=== PATIENT | female | born 1975 | race Two or more races ===

== ENCOUNTER 2024-08-10 13:25 | Outpatient (REF) | payer OTHER, SELFPAY ==
--- OUTSIDE RECORDS SUMMARY | 2023-11-11 13:27 | XMS_ITS | Encounter Summary ---
Author Organization [facility] Address [address] [place] [address] Care Team Providers Care Fretted String Instrument Repairer Name Role Phone Loly Browne MD Primary [...] you may not have stable housing? No 01/27/2024 Food Access & Nutrition Answer Date Rec orded Do you have access to a vari ety of food including fruits and vegetables? Yes 01/27/2024 Health Literacy Answer Date Recorded How often do you need to hav e someone help you when you read instructions, pamphlets, or other written material from your doctor or pharmacy? Never 01/27/2024 Caregiver: How often do you need to have someone help you when you read instructions, pamphlets, or other written material from your doctor or pharmacy? Not on file 01/27/2024 Financial Risk Answer Date Recorded How hard is it for you to pa y for the very basics like food, housing, medical care, and air conditioning / heating? Not very hard 01/27/2024 Transportation Answer Date Recorded Has the lack of transportati on kept you from meetings, work, or from getting things needed for daily living? No Has the lack of transportati on kept you from medical appointments or from getting medications? No 01/27/2024 Social Isolation Answer Date Recorded How often do you feel lonely or isolated from th ose around you? Never 01/27/2024 Food Risk Answer Date Recorded Within the past 12 months we worried whether our food would run out before we got money to buy more. Never true 01/27/2024 Within the past 12 months th e food we bought just didn't last and we didn't have money to get more. Never true 01/27/2024 Dependent Care Answer Date Recorded Do you need help finding or paying for care for your loved ones. For example, children's ministries director or elderly care for an older adult? No 01/27/2024 Education Answer Date Recorded Do you think completing more education or training, like finishing a GED, going to college, or learning a trade, would be helpful for you? No 01/27/2024 Employment and Income Answer Date Recor ded During the last four weeks, have you been actively looking for work? No 01/27/2024 Living Situation Answer Date Recorded What is your living situation? 1 03/29/2023 Comments No Sex and Gender Information Value [...] 10:09 AM EDT documented in this encounter Progress Notes * Historical, Notes [...] Care Team (Late st Contact Info) Description 08/17/2024 10:00 AM EDT Office Visit Gastroenterology - [place] [address] [phone] Eliana Herring NP [address] [address] 08/17/2024 3:00 PM EDT Appointment [facility] Infusion Center 271 [facility] 2nd [place] [phone] 08/24/2024 1:00 PM EDT Nutrition Internal Medicine - [place] [address] [phone] Faith Curtis, MICHELL 175 [place] [phone] 11/16/2024 11:30 AM EDT Office Visit [facility] Hematology Oncology [address] [place] [phone] Mounika Elise DO [address] [place] [address] 11/28/2024 12:30 PM EDT Office Visit Adult Medicine [address] [phone] Loly Browne MD [address] [place] [phone] documented as of this encounter Visit Diagnoses Not on filedocumented in this encounter Care Teams Fretted String Instrument Repairer Relationship Specialty Start Date End Date Loly Browne MD PCP - General Internal Medicine 09/09/21 01/05/24 documented as of this encounter
--- NOTE | 2024-08-10 13:33 | EMG_ITS ---
Impression: Moderately severe carpal tunnel syndrome bilaterally with significant motor axonal loss in the right median nerve. Normal EMG in the right C5-T1 innervated muscles. Please see detailed neurophysiological report MTDD
--- OUTSIDE RECORDS SUMMARY | 2024-08-10 14:04 | XMS_ITS | Data Portability ---
Author Organization [place] [facility] Address [address] [address] Assessment Encounter Date Assessment Date Assessment LastModified by Organization Details LastModified Time 09/16/2023 09/16/2023 47-year-old female presents for evaluation of hearing loss. On exam, bilateral TMs are intact with aerated middle ear spaces. Audiometric testing demonstrated normal sloping to severe sensorineural hearing loss bilaterally. Masking techniques recommended for tinnitus. She is a candidate for amplification and medical clearance was provided today. She will follow-up in 1 year for audiometric testing, or sooner with any concerns. [email or web address] Not available 09/16/2023 10:29:26 Plan of Treatment Reminders Order Date Submit Date Provider Last Modified By Organization Details Last Modified Time Details Appointments Hearing Test 2024 10:00A M Hearing Test Not available Not available Not available Establish ed 15 2024 10:30A M LILA STAPLETON PA-C Not available Not available Not available Lab None recorded. Referral None recorded. Procedures None recorded. Surgeries None recorded. Imaging None recorded. Medication Orders None recorded. Patient TargetsNo targets recorded. Patient InstructionsNo instructions recorded. Reason for Referral None Reported. Results Created Date Observation Date Name Description Value Unit Range Abnormal Flag Note LastModifiedBy Organization Detail LastModifiedTime 09/16/19 24 audio gram No observ ation record ed. BARCODE Not Available 2023 13:24:56 Result Notes None recorded. Problems Name Problem SNOMED Code Status Onset Date Resolution Date Notes Provider Name and Address Organization Details Recorded Time Sensorineur al hearing loss of bilateral ears 666953845 Active 2023 EDUIN BARNEY, AUD 100 [facility], [address], [place], [address], [place] - [facility] 09:45:10 Bilateral tinnitus 3333785963963 Active 2023 LILA STAPLETON PA-C 100 [facility] [address], [place], [phone], [place] - [facility] 10:28:33 Problem Notes None recorded. Procedures Surgical History Date Name Laterality Status Provider Name and Address Organization Details Recorded Time 09/16/19 24 Comp Audio with Tymps - 77068 & 95592 completed EDUIN BARNEY AUD 100 [facility] [address], [place], [address], [facility] - [facility] 09/16/2023 09:45:14 Cerv cancer screen docd completed Tori Kent [place] - [facility] 09/16/2023 09:58:28 mammogram - symptomatic completed Tori Kent [place] - [facility] 09/16/2023 09:58:59 colonoscopy completed Tori Kent [place] - [facility] 09/16/2023 09:59:13 section completed Tori Kent [place] - [facility] 09/16/2023 09:59:32 procedure on gallbladder completed Tori Kent [facility] - [facility] 09/16/2023 09:59:58 Imaging Results None recorded. Procedure Notes None recorded. Medical Equipment None Reported. Allergies Allergen ID Allergen Name Allergen Category Reaction Reaction Severity Criticality Documentation Date Start Date Code Code System Note Provider Name and Address Organization Details Recorded Time 302770 Product containin g penicilli n (product) medicatio n Not available Not available Not available 09/16/2023 [address] - [facility] 09:55:07 Medications Name Sig Start Date Stop Date Status Note LastModified by Organization Details LastModified Time levothyroxi ne 100 mcg tablet TAKE 1 TABLET BY MOUTH EVERY DAY active Not Available Not Available No t Available metoprolol succinate ER 25 mg tablet,exte nded release 24 hr TAKE 1 TABLET BY MOUTH EVERY DAY active Not Available Not Available No t Available Laxative (bisacodyl) 5 mg tablet,leslie yed release TAKE 2 TABS AT 6PM DIRECTED. 09/15 completed Not Available Not Available Not Available vitamin O79-mflmo acid injection solution Take 25 mg by injection route. active Not Available Not Available No t Available GaviLyte-G 236 gram-22.74 gram-6.74 gram-5.86 gram oral solution PLEASE SEE ATTACHED FOR DETAILED DIRECTION S 09/15 completed Not Available Not Available Not Available Vitals Date Recorded Body height Body mass index (BMI) Body weight Provider Name and Address Organization Details Last Updated DateTime 09/16/2023 157.48 cm 34.6 kg/m2 33254.96 g Tori Kent [place] - [facility] 09/16/2023 10:12:41 Social History None recorded. Functional Status None recorded. Mental Status None recorded. Family History Nothing Reported. Medical History Condition Response Heart Problems Y Anemia Y Anxiety Y Thyroid Problems Y Depression Y Gynecological HistoryNo gynecological history recorded. Obstetrics History GPAL:G 0 P 0 0 0 0 Immunizations Vaccine Type Date Status Note Provider Nam e and Address Organization Details Recorded Time influenza nasal, unspecified formulation completed Tori wallace [place] - [facility] 09/16/2023 09:57:57 Past Encounters Encounter ID Performer Location Encounter Start Date Encounter Closed Date Diagnosis/Indication Diagnosis SNOMED-CT Code Diagnosis ICD10 Code Diagnosis Note [id number] LILA STAPLETON PA-C [facility] [address] [address] 09/16/2023 09:31:51 09/16/2023 10:19:24 Sensorineural hearing loss of bilateral ears 548477016 H90.3 Right Ear:Normal hearing through 500 Hz sloping to a severe SNHL with excellent speech discrimina tion.Type A tympanogra m.Left Ear:Normal hearing through 500 Hz sloping to a severe SNHL with excellent speech discrimina tion.Type A tympanogra m. Bilateral tinnitus 76177 31416 102 H93.13 Health Concerns Section Related Observation LastModified by Organization Detai ls LastModified Time None Recorded Concern Status LastModified by Organization Details LastModified Time None Recorded Advance Directives Directive None Recorded Payers Insurance Date Sequence Insurance Name Policy Number Policy Archer Covered Member ID Archer Member ID Guarantor Name 09/17/2023 1 [facility] (MEDICAID REPLACEMENT - HMO) [address] [id number] Eliseoe Ashleigh Notes Date Note Type Note Provider Name and Address Organization Details Recorded Time 09/16/2023 text/html 47-year-old fema zeus presents for evaluation of hearing loss. She reports longstanding hearing loss, worse on the left. Denies family history of hearing loss. Denies prior otologic history. Admits to bilateral longstanding tinnitus that is unchanged, but denies otalgia, otorrhea, and vertigo. LILA STAPLETON PA-C [address] [place] [address], [phone], [facility] - [facility] 09/16/2023 10:30:22 OBGyn Episode No OBEpisode recorded.
--- OUTSIDE RECORDS SUMMARY | 2024-08-10 14:04 | XMS_ITS | Clinical Summary ---
Author Organization [facility] Address [address] [place] [address] Care Team Providers Care Premix Operator Concentrate Name Role Phone Loly Wing MD Primary Care Prov ider Allergies Active Allergy Reactions Criticality Noted Date Comments Penicillins 07/05/2020 Medications Medication Sig Dispensed Refills Start Date End Date Status cyanocobalamin (VITAMIN B12) 1000 MCG/ML injection Inject 1 mL (1,000 mcg total) into the muscle every 30 (thirty) days. 0 Active levothyroxine (SYNTHROID) tablet 100 mcg Take 1 tablet (100 mcg total) by mouth every morning on an empty stomach. Mon-Sat one tab, Thursday 1/2 tablet 0 Active metoprolol succinate (TOPROL-XL) 24 hr tablet 25 mg Take by mouth daily. 0 Active albuterol 108 (90 Base) MCG/ACT inhaler Inhale 2 puffs into the lungs. 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 Vitamin D deficiency 08/18/2016 B12 deficiency 09/13/2015 Anxiety 08/07/2015 Overview: F/u at [facility] Atrial fibrillation 08/07/2015 Hypothyroidism 08/07/2015 Iron deficiency anemia 08/07/2015 Family History Medical History Relation Name Comments Hypertension Father Diabetes Maternal Grandfather Diabetes Maternal Grandmother Cancer Mother Relation Name Status Comments Father Maternal Grandfather Maternal Grandmother Mother Social History Tobacco Use Types Packs/Day Years Used Date Smoking Tobacco: Never Smokeless Tobacco: Never Alcohol Use Standard Drinks/Week Comments Never 0 (1 standard drink = 0.6 oz pur e alcohol) Sex and Gender Information Value Date Recorded Sex Assigned at Female 07/14/2023 9:30 AM EDT Gender Identity Not on file Sexual Orientation Not on file Job Start Date Occupation Industry Not on file Not on file Not on file Last Filed Vital Signs Vital Sign Reading Time Taken Comments Blood Pressure 111/66 12/09/2023 2:06 PM EDT Pulse 96 12/09/2023 2:06 PM EDT Temperature 36.6 C (97.8 F) 12/09/2023 2:06 PM EDT Respiratory Rate 18 11/11/2023 1:57 PM EDT Oxygen Saturation 98% 12/09/2023 2:06 PM EDT Inhaled Oxygen Concentration - - Weight 86.2 kg (190 lb) 10/21/2023 10:09 AM EDT Height 157.5 cm (5' 2 ) 10/21/2023 10:09 AM EDT Body Mass Index 34.75 10/21/2023 10:09 AM EDT Plan of Treatment Health Maintenance Due Date Last Done Comments Hepatitis C Screening 1975 Depression Screening 1987 BMI Counseling 11/13/1993 Preventative Health Evaluation 11/13/1993 Cervical Cancer Screening (Pap Smear) 11/13/1996 Colon Cancer Screening (Colonoscopy) 11/13/2020 COVID-19 Vaccine ( season) 2023 02/07/2021, 07/26/2020, 07/05/2020 Influenza Vaccine (Season Ended) 2024 10/14/2022, 01/15/2021, 02/11/2019, Additional history exists DTap / Tdap / Td (3 - Td or Tdap) 04/16/2026 04/16/2016, 09/28/2009 Hepatitis B Vaccines Completed 01/28/2023, 08/27/2022, 07/30/2022 Pneumococcal Vaccine Aged Out No long er eligible based on patient's age to complete this topic RSV Ped < 20 months Aged Out No longe r eligible based on patient's age to complete this topic Care Teams Premix Operator Concentrate Relationship Specialty Start Date End Date Loly Wing MD [address] [place] [address] PCP - General Internal Medicine 12/10/22
== END 2024-08-10 13:26 | disposition home or self-care (01) ==
LOC: HO.NEURO 13:25
PROVIDERS: PCP Internal Medicine; Visit Provider Psychiatry & Neurology Neurology
DX: G56.03 Carpal tunnel syndrome, bilateral upper limbs (principal)
CPT/HCPCS: 95885; 95913

== ENCOUNTER → 2024-08-10 13:33 | Outpatient (BNV) | payer OTHER, SELFPAY | PROVIDERS: PCP Internal Medicine; Visit Provider Psychiatry & Neurology Neurology | DX: G56.03 Carpal tunnel syndrome, bilateral upper limbs (principal) | CPT/HCPCS: 95886; 95913 ==

== ENCOUNTER 2024-09-21 14:25 | Outpatient (AMB) | payer OTHER, SELFPAY ==
--- OUTSIDE RECORDS SUMMARY | 2023-11-11 13:27 | XMS_ITS | Encounter Summary ---
Author Organization [facility] Address [address] [place] [address] Care Team Providers Care Tractor Trailer Truck Driver Name Role Phone Loly Browne MD Primary [...] care for your loved ones. For example, salesperson children's shoes or elderly care for an older adult? [...] Care Team (Late st Contact Info) Description 09/28/2024 3:30 PM EDT Appointment [facility] Infusion Center [address] [phone] 11/16/2024 11:30 AM EDT Office Visit [facility] Hematology Oncology [address] [place] [phone] Mounika Elise DO [address] [place] [address] 11/28/2024 12:30 PM EDT Office Visit Adult Medicine [facility] [address] [place] [phone] Loly Browne MD [address] [place] [address] 11/30/2024 9:00 AM EDT Nutrition Internal Medicine [facility] 175 [facility] [address] [place] [phone] Faith Curtis, RD 175 [place] [phone] documented as of this encounter Visit Diagnoses Not on filedocumented in this encounter Care Teams Tractor Trailer Truck Driver Relationship Specialty Start Date End Date Loly Browne MD PCP - General Internal Medicine 09/09/21 01/05/24 documented as of this encounter
--- NOTE | 2024-09-21 14:37 | A.OFFVIS_ITS ---
Intake Visit Reasons: [address] was not here Allergies Penicillins Allergy (Unknown, Verified 09/16/24 08:04) Unknown Medication List - Last Reconciled 09/21/24 by Iliana Bejarano MD aripiprazole 2 mg PO QAM buspirone 5 mg PO BID levothyroxine 100 mcg PO QAM melatonin mg PO HPI Comments Details: This is a 48-year-old woman with a history of hypothyroidism, atrial fibrillation, who comes in with c/o daily pain, numbness and tingling in both hands since early June 2024, that gets worse at night and affects her ability to sleep.? She is left-handed.? She says that she has not been doing anything unusual with her hands and does not do any repetitive movements.? There is no neck pain or stiffness.? No lower extremity complaints.? She's not aware of any weakness. [facility] Medical History (Updated 09/21/24 @ 14:44 by Iliana Bejarano MD) Carpal tunnel syndrome, bilateral upper limbs Review of Systems Const Details: Sleep:? Difficulty getting to sleepdenies.? Difficulty maintaining sleepdenies?.? Urge to move legsdenies.? Teeth grindingdenies.? Shouting or Kicking during sleep denies.? Abnormal behavior during sleepdenies.? Excessive sleepdenies.? Snoring denies.? Daytime sleepinessdenies. ???General/Constitutional:? Change in appetitedenies.? Chillsdenies.? Fatiguedenies.? Feverdenies.? Weight gaindenies.? Weight lossdenies. ???Ophthalmologic:? Blurred visiondenies.? Diminished visual acuitydenies. ???ENT:? Stuffinessdenies.? Decreased hearingdenies.? Dry mouthdenies.? Ear paindenies.? Nosebleeddenies.? Ringing in the earsdenies.? Sinus paindenies.? Sore throat denies.? Swollen glandsdenies. ???Endocrine:? Cold intolerancedenies.? Excessive thirstdenies.? Frequent urinationdenies.? Heat intolerancedenies. ???Respiratory:? Shortness of breathdenies.? Chest paindenies.? Coughdenies. ???Breast:? Breast lumpdenies.? Nipple dischargedenies. ???Cardiovascular:? Chest pain at restdenies.? Chest pain with exertiondenies.? Claudicationdenies .? Dizzinessdenies.? Fluid accumulation in the legsdenies.? Irregular heartbeat denies.? Palpitationsdenies. ???Gastrointestinal:? Abdominal paindenies.? Constipationdenies.? Diarrheadenies.? Difficulty swallowingdenies.? Heartburndenies.? Nauseadenies.? Rectal bleedingdenies. ???Hematology:? Easy bruisingdenies.? Prolonged bleedingdenies. ???Genitourinary:? Frequent urinationdenies.? Urgencydenies.? Incontinencedenies.? Erectile Dysfunctiondenies. ???Musculoskeletal:? Neck paindenies.? Back paindenies.? Muscle achesdenies.? Painful jointsdenies.? Sciaticadenies.? Weaknessdenies. ???Podiatric:? Difficulty walkingdenies.? Foot numbnessdenies. ???Neurologic:? Difficulty swallowingdenies.? Balance difficultydenies.? Coordinationnormal.? Difficulty speakingdenies.? Dizzinessdenies.? Faintingdenies.? Gait abnormality denies.? Headachedenies.? Loss of strengthdenies.? Loss of use of extremity denies.? Low back paindenies.? Memory lossdenies.? Seizuresdenies.? Ticsdenies.? Tingling/Numbnessdenies.? Transient loss of visiondenies.? Tremordenies. ???Psychiatric:? Anxietydenies.? Auditory/visual hallucinationsdenies.? Delusionsdenies.? Depressed mooddenies.? Stressorsdenies.? Substance abusedenies.? Suicidal thoughtsdenies. Physical Exam Neuro Other: Neurological: Abnormal neurological findings:??moderate weakness in the abductor pollicis brevis muscle bilaterally, right worse than left.? Decreased sensation in the median nerve distribution bilaterally with sparing of the fifth finger and ulnar half of the ring finger bilaterally..?Mental Status:??alert and oriented X 3,?Normal attention, orientation, memory and affect.?Cranial Nerves:??Pupils are equal, round and reactive to light. Fundoscopy shows normal disc bilaterally. E xternal occular muscles are intact. Visual [place] are full, no ptosis. Face is symmetrical, no facial weakness or droop. Facial sensations are normal. Tongue protrudes in midline. Palate elevates symmetrically. Shoulder shrugging is normal..?Motor Examination:??Weak APB bilaterally, otherwise normal muscle tone, bulk and strength,?No atrophy or fasciculations,?No drift of the extended upper extremities,?Deep tendon reflexes are 2+?,?Plantars are flexor?.?Straight Leg Raising:??90 degrees.?Sensory Exam:??As above, otherwise Normal light touch, temperature, pinprick, vibration and joint-position sensations?,?Rhomberg sign is absent.?Coordination:??no ataxia,?no titubation,?wivkxz-zq-odfv, lqds-bygh-qobi test and rapid alternating movements were normal.?Gait Exam:??Within normal limits.?Cerebellar Signs:??Dowinx-lg-zkkx and cujp-fh-tvzs is normal,?no dysdiadochokinesia?.?Extrapyramidal System:??No tremor, rigidity with normal facial expressions,?No bradykinesia, no bradyphrenia. Normal arm swing and posture. No propulsion or retropulsion.?Speech:??Normal,?no dysphasia or dysarthria..? Mini Mental Status Exam: Level of Consciousness:??Alert.?Orientation:??Knows correct year, month, date, day and season,?Knows correct city, county and state. Knows correct location and floor.?Registration:??Able to register 3 objects.?Attention:??Serial 7's performed accurately.?Recall:??Able to recall 3 out of 3 objects.?Language:??Normal spontaneous speech, fluency, repetition,naming, comprehension, reading and writing.?Total Score:??30/30.? General Examination: GENERAL APPEARANCE:??normal,?in no acute distress.?HEAD:??normocephalic,?atraumatic.?EYES:??sclera non- icteric,?conjunctiva clear.?EARS:??auditory canal clear,?tympanic membrane intact, clear.?NOSE:??no lesions.?ORAL CAVITY:??gums normal,?mucosa moist,?no lesions.?THROAT:??clear.?NECK/THYROID:??no cervical lymphadenopathy,?thyroid normal,?neck supple, full range of motion,?no carotid bruit.?SKIN:??no rashes,?no significant birthmarks.?HEART:??S1, S2 normal,?no murmurs.?LUNGS:??clear anteriorly and posteriorly.?CHEST:??no gross rib deformity,?clear to auscultation.?BACK:??normal exam of spine.?EXTREMITIES:??no edema.?PERIPHERAL PULSES:??normal.?PSYCH:??alert, oriented,?cognitive function intact,?cooperative with exam.? Results Reviewed Results Reviewed: 08/11/24 NCV/EMG : Moderately severe carpal tunnel syndrome bilaterally with significant motor axonal loss in the right median nerve. Normal EMG in the right C5-T1 innervated muscles. Assessment & Plan Assessment & Plan (1) Carpal tunnel syndrome, bilateral upper limbs: Code(s): G56.03 - Carpal tunnel syndrome, bilateral upper limbs Category: Medical Plan Refer for CTS decompression to Hand surgeon. Orders: Referrals Hand Surgery Referral G56.03 - Carpal tunnel syndrome, bilateral upper limbs Coding Level of Care Code Est Pt Level 3 (18077) Diagnoses Carpal tunnel syndrome, bilateral upper limbs G56.03
--- OUTSIDE RECORDS SUMMARY | 2024-09-21 14:39 | XMS_ITS | Clinical Summary ---
Author Organization [facility] Address [address] [place] [address] Care Team Providers Care Solar Energy Systems Designer Name Role Phone Loly Wing MD Primary [...] season) 2023 02/07/2021, 07/26/2020, 07/05/2020 Influenza Vaccine (#1) 2024 3, 01/15/2021, 02/11/2019, Additional history exists DTap / Tdap / Td (3 - Td or Tdap) 04/16/2026 04/16/2016, 09/28/2009 Hepatitis B Vaccines Completed 01/28/2023, 08/27/2022, 07/30/2022 Pneumococcal Vaccine Aged Out No long er eligible based on patient's age to complete this topic RSV Ped < 20 months Aged Out No longe r eligible based on patient's age to complete this topic Care Teams Solar Energy Systems Designer Relationship Specialty Start Date End Date Loly Wing MD [address] [place] [address] PCP - General Internal Medicine 12/10/22
== END 2024-09-21 14:48 | disposition home or self-care (01) ==
LOC: HO.HSM 14:26
PROVIDERS: PCP Internal Medicine; Referring Provider Internal Medicine; Visit Provider Psychiatry & Neurology Neurology
DX: G56.03 Carpal tunnel syndrome, bilateral upper limbs (principal)
CPT/HCPCS: 99213

== ENCOUNTER → 2024-09-21 14:25 | Outpatient (BNVA) | payer OTHER, SELFPAY | PROVIDERS: PCP Internal Medicine; Referring Provider Internal Medicine; Visit Provider Psychiatry & Neurology Neurology | DX: G56.03 Carpal tunnel syndrome, bilateral upper limbs (principal) | CPT/HCPCS: 99212 ==

== ENCOUNTER 2024-11-23 09:29 | Outpatient (AMB) | payer OTHER, SELFPAY ==
--- OUTSIDE RECORDS SUMMARY | 2023-11-11 13:27 | XMS_ITS | Encounter Summary ---
Author Organization [facility] Address [address] [place] [address] Care Team Providers Care Sliver Lap Machine Tender Name Role Phone Loly Browne MD Primary [...] Care Team (Late st Contact Info) Description 11/23/2024 2:[address] [facility] Infusion Center [address] [place] [phone] Mounika Elise DO [address] [place] [address] 11/28/2024 12:30 PM EDT Office Visit Adult Medicine [address] [phone] Loly Browne MD [address] [place] [address] 11/28/2024 2:00 PM EDT Office Visit [facility] Hematology Oncology [address] [place] [phone] Mounika Elise DO [address] [place] [address] documented as of this encounter Visit Diagnoses Not on filedocumented in this encounter Care Teams Sliver Lap Machine Tender Relationship Specialty Start Date End Date Loly Browne MD PCP - General Internal Medicine 09/09/21 01/05/24 documented as of this encounter
--- OUTSIDE RECORDS SUMMARY | 2023-12-09 13:59 | XMS_ITS | Encounter Summary ---
Author Organization [facility] Address [address] [place] [address] Care Team Providers Care Armored Vehicle Officer Name Role Phone Loly Browne MD Primary [...] for your loved ones. For example, children's nursery assistant or elderly care for an older [...] Info) Description 11/23/2024 2:30 PM EDT Appointment [facility] Infusion Center [address] [place] [phone] Mounika Elise, DO [address] [place] [address] 11/28/2024 12:30 PM EDT Office Visit Adult [address] [phone] Loly Browne MD [address] [place] [address] 11/28/2024 2:00 PM EDT Office Visit [facility] Hematology Oncology [address] [place] [address] [phone] Mounika Elise, [address] [place] [phone] documented as of this encounter Visit Diagnoses Not on filedocumented in this encounter Care Teams Armored Vehicle Officer Relationship Specialty Start Date End Date Loly Browne MD PCP - General Internal Medicine 09/09/21 01/05/24 documented as of this encounter
--- NOTE | 2024-11-23 09:50 | A.OFFVIS_ITS ---
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 Patient reports right hand is worse than left. She states she has no strength in the right hand causing her to have difficulty with activities such as gripping, grasping, squeezing and lifting. She states holding a coffee mug is difficult and painful. Her numbness and tingling is mainly located in the left and right 3rd and 4th digits. Denies any cramping or locking of fingers. Denies past treatment for this. She says for a while she had to sleep sitting up due to her symptoms worsening at night. She would like to discuss surgery if it needs to be done. She is requesting to discuss work status today. Patient is taking metoprolol 25mg once daily PO for aFib. EMG/NCS 08/10/24: Impression: Moderately severe carpal tunnel syndrome bilaterally with significant motor axonal loss in the right median nerve. Normal EMG in the right C5-T1 innervated muscles. Allergies Penicillins Allergy (Unknown, Verified 11/23/24 09:56) Unknown HPI HPI [employer]OM[employer]S [employer]-Moderately severe bilateral CTS: Details: Anne-Marie is a 49 year old left hand dominant woman who presents today in office as a new patient for evaluation of bilateral carpal tunnel syndrome. Patient reports right hand is worse than left. She states she has no strength in the right hand causing her to have difficulty with activities such as gripping, grasping, squeezing and lifting. She states holding a coffee mug is difficult and painful. Her numbness and tingling is mainly located in the left and right 3rd and 4th digits. Denies any cramping or locking of fingers. Denies past treatment for this. She says for a while she had to sleep sitting up due to her symptoms worsening at night. She would like to discuss surgery if it needs to be done. She is requesting to discuss work status today. Patient is taking metoprolol 25mg once daily PO for aFib. EMG/NCS 08/10/24: Impression: Moderately severe carpal tunnel syndrome bilaterally with significant motor axo nal loss in the right median nerve. Normal EMG in the right C5-T1 innervated muscles. 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 Normal sensation to all other digits in the right hand today. Normal sensation in the tips of all digits of the left hand today. No thenar or intrinsic wasting. Good APB muscle firing and good finger cross. Vascular: Capillary refill brisk. ROM: Patient can make a fist and extend all their digits. Skin: No lacerations or abrasions noted. General: No ecchymosis. No erythema or evidence of infection. Assessment & Plan Assessment & Plan (1) Carpal tunnel syndrome, bilateral upper limbs: Code(s): G56.03 - Carpal tunnel syndrome, bilateral upper limbs Category: Medical Plan 1. Right carpal tunnel syndrome Symptoms are intermittent, dull aching worse at night I educated the patient about the condition. I discussed both operative and nonoperative treatment options. The patient would like to proceed with surgery. The risks and benefits of operative treatment were discussed with the patient and the patient wishes to proceed with surgery. These risks include, but are not limited to, risk of damage to blood vessels, nerves, tendons, infection, recurrence, incomplete relief of preoperative symptoms, persistent pain, possible need for further surgery, and the risks associated with regional blocks and/or anesthesia. Plan is to take the patient to the operating room at some point in the next few weeks for the following procedures: 1. Right carpal tunnel release under local anesthesia All of the preoperative paperwork including the consent was discussed today. All of the patient's questions were answered in the clinic today. The patient understands that they will be in contact with our surgical orderly to discuss scheduling their procedure. Patient denies diabetes, blood thinners, asthma, heart issues, lung issues, kidney issues, or current smoking. Coding Level of Care Code New Pt Level 4 (37669) Diagnoses Carpal tunnel syndrome, bilateral upper limbs G56.03
[2024-11-23 09:56] VITALS: BMI 38.4
--- OUTSIDE RECORDS SUMMARY | 2024-11-23 10:49 | XMS_ITS | Clinical Summary ---
Author Organization [facility] Address [address] [place] [address] Phone Care Team Providers Care Pilot Plant Operator Name Role Phone Loly Browne MD Primary Care Prov ider Allergies Active Allergy Reactions Criticality Noted Date Comments Penicillins 07/05/2020 Medications cyanocobalamin (VITAMIN B-12) 1,000 mcg/mL injection Inject 1 mL (1,000 mcg total) into the muscle every 30 (thirty) days. Active metoprolol succinate (TOPROL-XL) 25 mg 24 hr tablet Take by mouth daily. Active albuterol HFA (PROAIR HFA ; PROVENTIL HFA ; VENTOLIN HFA) 90 mcg/actuation inhaler Inhale 2 puffs by mouth. 12/02/2023 Active colestipoL (COLESTID) 1 gram tablet Take 1 tablet (1 g total) by mouth 2 (two) times a day. 180 each 1 03/02/2024 Active levothyroxine (SYNTHROID, LEVOTHROID) 100 mcg tablet TAKE 1 TABLET BY MOUTH 1 TIME EACH DAY BEFORE BREAKFAST. 90 tablet 2 04/28/2024 Active gabapentin (NEURONTIN) 100 mg capsule Take 1 capsule (100 mg total) by mouth at bedtime. 90 each 06/28/2024 Active Active Problems Problem Noted Date Diagnosed Date Paresthesia of upper extremity 06/28/2024 Fibromyalgia 06/28/2024 Pain in both hands 06/28/2024 Right arm pain 06/28/2024 Left arm pain 06/28/2024 Pain in both forearms 06/28/2024 Cervical radiculopathy 06/28/2024 Muscle weakness 06/28/2024 S/P bariatric surgery 01/27/2024 S/P cholecystectomy 01/27/2024 Chronic diarrhea 01/27/2024 Vitamin D deficiency 08/18/2016 B12 deficiency 09/13/2015 Assessment & Plan (07/27/2024 10:10 AM EDT): Anxiety 08/07/2015 Overview (04/15/2023): F/u at [facility] Atrial fibrillation ([facility] V24, [facility] V28) 0 08/07/2015 Assessment & Plan (07/27/2024 10:10 AM EDT): Hypothyroidism 08/07/2015 Assessment & Plan (07/27/2024 10:10 AM EDT): Iron deficiency anemia 08/07/2015 Encounters Date Type Department Care Team Description 10/26/2024 2:52 PM EDT - 10/26/2024 11:59 PM EDT Hospital Encounter [facility] [address] [place] [phone] Mounika Elise DO B12 deficiency (Primary Dx) Discharge Disposition: Home or Self Care 10/19/2024 [facility] [address] [phone] Kaye Orellana MA 09/28/2024 3:24 PM EDT - 09/28/2024 11:59 PM EDT Hospital Encounter [facility] [address] [place] [phone] Mounika Elise DO B12 deficiency (Primary Dx) Discharge Disposition: Home or Self Care 08/24/2024 1:00 PM EDT Nutrition Internal Medicine - [address] [place] [address] Class 2 severe obesity due to excess calories with serious comorbidity and body mass index (BMI) of 37.0 to 37.9 in adult ([facility] V24, [facility] V28) (Primary Dx) from Last 3 Months Surgical History Surgery Date Site/Laterality Comments OTHER SURGICAL HISTORY PROCEDURE:sleeve gastrectomy TUBAL LIGATION PROCEDURE:TUBAL LIGATION CHOLECYSTECTOMY PROCEDURE:CHOLECYSTECTOMY SECTION PROCEDURE: SECTION LAPAROSCOPIC GASTRIC BANDING PROCEDURE:LAPAROSCOPIC PLACEMENT GASTRIC RESTRICTIVE DEVICE LAPAROSCOPIC GASTRIC BANDING 2006 PROCEDURE: LAP ADJUSTABLE GASTRIC BAND TUBAL LIGATION 2010 PROCEDURE: HISTORICAL TUBAL LIGATION OTHER SURGICAL HISTORY 11/13/2016 PROCEDURE: ---- OTHER ----; COMMENT: gastric sleeve Medical History Medical History Date Comments Iron deficiency anemia DX:Iron d eficiency anemia Atrial fibrillation ([facility] V24, [facility] V28) DX:Atrial fibrillation (HCC) B12 deficiency DX:B12 deficienc y Anxiety DX:Anxiety Hypothyroidism DX:Hypothyroidis m Hypothyroidism 08/07/2015 DX:Hypothyroidis m Atrial fibrillation ([facility] V24, [facility] V28) 08/07/2015 DX:Atrial fibrillation (HCC) Morbid obesity ([facility] V24, [facility] V28) 08/07/2015 DX:Morbid obesity (HCC) Iron deficiency anemia 08/07/2015 DX:Iron d eficiency anemia Anxiety 08/07/2015 DX:Anxiety; COMM [facility]: F/u at [facility] B12 deficiency 09/13/2015 DX:B12 deficienc y Osteoarthritis of both knees DX: Osteoarthritis of both knees Vitamin D deficiency 08/18/2016 DX:Vitamin D deficiency Obesity (BMI 30.0-34.9) 08/07/2015 DX:Obesi ty (BMI 30.0-34.9) History of sleeve gastrectomy 06/23/2018 DX :History of sleeve gastrectomy ASCUS of cervix with negativ e high risk HPV DX:ASCUS of cervix with nega tive high risk HPV Tubular adenoma of colon 06/19/2023 DX:Tubu lar adenoma of colon Family History Medical History Relation Name Comments Heart attack Father Hypertension Father Diabetes Maternal Grandfather CAD Diabetes Maternal Grandmother CAD Breast cancer Mother age 52 Cancer Mother Relation Name Status Comments Father Maternal Grandfather Maternal Grandmother Mother Alive Social History Tobacco Use Types Packs/Day Years Used Date Smoking Tobacco: Never Smokeless Tobacco: Never Tobacco Cessation:Counseling Given: Not Answered Alcohol Use Standard Drinks/Week Comments No 0 [...] for your loved ones. For example, child watch attendant or elderly care for an older adult? [...] Orientation Straight 03/16/2024 2: 15 PM EST Obstetrics History Last Filed Vital Signs Vital Sign Reading Time Taken Comments Blood Pressure 146/85 10/26/2024 3:46 PM EDT Pulse 80 10/26/2024 3:46 PM EDT Temperature 36.7 C (98 F) 10/26/2024 3:46 PM EDT Respiratory Rate 16 10/26/2024 3:46 PM EDT Oxygen Saturation 100% 10/26/2024 3:46 PM EDT Inhaled Oxygen Concentration - - Weight 91.6 kg (202 lb) 08/24/2024 1:44 PM EDT Height 157.5 cm (5' 2 ) 08/24/2024 1:44 PM EDT Body Mass Index 36.95 08/24/2024 1:44 PM EDT Plan of Treatment Upcoming Encounters Date Type Department Care Team (Late st Contact Info) Description 11/23/2024 2:30 PM EDT Appointment [facility] [address] [place] [phone] Mounika Elise, [address] [place] [phone] 11/28/2024 12:30 PM EDT Office Visit Adult Medicine [address] [phone] Loly Browne MD [address] [place] [address] 11/28/2024 2:00 PM EDT Office Visit [facility] Hematology Oncology [address] [place] [phone] Mounika Elise DO [address] [place] [address], [place] [address] Health Maintenance Due Date Last Done Comments Cervical Cancer Screening: Pap Smear 11/13/1996 Hepatitis C Screening 01/18/2022 Influenza Vaccine (#1) 2024 3, 01/11/2022, 01/15/2021, Additional history exists Social Influencers of Health Screening 01/26/2025 01/27/2024 Breast Cancer Screening 04/16/2025 04/17/2023 DTaP,Tdap,and Td Vaccines (3 - Td or Tdap) 04/16/2026 04/16/2016, 09/28/2009 Colorectal Cancer Screening: Colonoscopy 06/18/2028 06/19/2023 Cholesterol Screening (Lipid Panel) 05/23/2029 05/23/2024 RSV Immunization Adult Patients (1 - 1-dose 75+ series) 11/13/2050 COVID-19 Vaccine Discontinued 02/07/2021, , 07/05/2020 Hepatitis B Vaccines Completed 01/28/2023, 08/27/2022, 07/30/2022 HIV Screening Completed 07/15/2023 Depression Screening Completed 11/21/2024 HIB Vaccines Aged Out No longer eligi ble based on patient's age to complete this topic HPV Vaccines Aged Out No longer eligi ble based on patient's age to complete this topic Hepatitis A Vaccines Aged Out No long er eligible based on patient's age to complete this topic IPV Vaccines Aged Out No longer eligi ble based on patient's age to complete this topic MMR Vaccines Aged Out No longer eligi ble based on patient's age to complete this topic Meningococcal ACWY Vaccine Aged Out N o longer eligible based on patient's age to complete this topic Meningococcal B Vaccine Aged Out No l onger eligible based on patient's age to complete this topic Pneumococcal Vaccine: Pediatrics (0 to 5 Years) and At-Risk Patients (6 to 49 Years) Aged Out No longer eligible based on patient's age to complete this topic RSV Immunization Patients Under 20 months Aged Out No longer eligible based on patient's age to complete this topic Varicella Vaccines Aged Out No longer eligible based on patient's age to complete this topic Procedures Procedure Name Priority Date/Time Associated Diagnosis Comments MO SLEEP STUDY ATTENDED Routine 09/21/2024 10:25 AM EDT LIPID PANEL WITH REFLEX TO DIRECT LDL Routine 05/23/2024 8:42 AM EDT Hypothyroidism, unspecified type Atrial fibrillation, unspecified type (CMS/HCC V24, CMS/HCC V28) from Last 3 Months or Most Recently Relevant to Health Maintenance Results * General sleep study (09/21/2024 10:25 AM EDT) Historical Provider MD SLEEP CENTER ORDERABLES F inal Result * Lipid panel with reflex to direct LDL (05/23/2024 8:42 AM EDT) Cholesterol 147 0 - 200 mg/dL LAB CHEMISTRY METHOD 05/23/2024 9:35 AM EDT [facility] Triglycerides 96 0 - 150 mg/dL LAB CHEMISTRY METHOD 05/23/2024 9:35 AM EDT [facility] HDL 64 >=40 mg/dL LAB CHEMISTRY METHOD 05/23/2024 9:35 AM EDT [facility] LDL Calculated 64 0 - 100 mg/dL LAB CHEMISTRY METHOD 05/23/2024 9:35 AM [facility] VLDL Cholesterol Major 19.2 mg/dL LAB CHEMISTRY METHOD 05/23/2024 9:35 AM [facility] Non HDL Chol. (LDL+VLDL) 83 <145 mg/dL LAB CHEMISTRY METHOD 05/23/2024 9:35 AM EDT [facility] Chol/HDL Ratio 2.3 0.0 - 4.4 LAB CHEMISTRY METHOD 05/23/2024 9:35 AM [facility] Blood Venous blood specimen / Unknown Venipuncture / Unknown 05/23/2024 8:42 AM EDT 05/23/2024 8:57 AM EDT [facility] LAB BLOOD ORDERABLES Final Resul t [facility] [address] [place] [address], from Last 3 Months or Most Recently Relevant to Health Maintenance Insurance [facility] [employer] Care Teams Pilot Plant Operator Relationship Specialty Start Date End Date Loly Browne MD [address] [place] [phone] PCP - General Internal Medicine 01/06/24
--- OUTSIDE RECORDS SUMMARY | 2024-11-23 10:49 | XMS_ITS | Clinical Summary ---
Author Organization [facility] Address [address] [place] [address] Care Team Providers Care Remotely Piloted Vehicle Controller Name Role Phone Loly Wing MD Primary [...] Screening (Colonoscopy) 11/13/2020 COVID-19 Vaccine ( season) 2024 02/07/2021, 07/26/2020, 07/05/2020 Influenza Vaccine (#1) 2024 [...] age to complete this topic Care Teams Remotely Piloted Vehicle Controller Relationship Specialty Start Date End Date Loly Wing MD [address] [place] [address] PCP - General Internal Medicine 12/10/22
--- OUTSIDE RECORDS SUMMARY | 2024-11-23 10:50 | XMS_ITS | Data Portability ---
Author Organization [place] [facility], All[facility] Address [address] [place] [phone] Assessment Encounter Date Assessment Date Assessment LastModified [...] audiometric testing, or sooner with any concerns. [email or web address] Not available 09/16/2023 10:29:26 Plan of Treatment Reminders Order Date Submit Date Provider Last Modified By Organization Details Last Modified Time Details Appointments None record ed. Lab None record ed. Referral None record ed. Procedures None record ed. Surgeries None record ed. Imaging None record ed. Medication Orders None record ed. Patient TargetsNo targets recorded. Patient InstructionsNo instructions [...] Sensorineur al hearing loss of bilateral ears 150103117 Active 2023 SEVEN WEISS [address], [phone] - [facility] 09:45:10 Bilateral tinnitus 0252278195013 Active 2023 LILA STAPLETON PA-C [address] [facility], [place], [phone], [place] - [facility] 4 10:28:33 Problem Notes None recorded. Procedures Surgical History Date Name Laterality Status Provider Name and Address Organization Details Recorded Time 09/16/19 24 Comp Audio with Tymps - 17964 & 14557 completed [facility] 100 [facility], [place], [phone], [facility] - [facility] 09/16/2023 09:45:14 Cerv cancer screen docd completed Tori Kent [place] - [facility] 09/16/2023 09:58:28 mammogram - symptomatic completed Tori Kent [place] - [facility] 09/16/2023 09:58:59 colonoscopy completed Tori Kent [place] - [facility] 09/16/2023 09:59:13 section completed Tori Kent [place] - [facility] 09/16/2023 09:59:32 procedure on gallbladder completed Tori Kent [place] - [facility] 09/16/2023 09:59:58 Imaging Results None recorded. Procedure Notes None recorded. Medical Equipment None Reported. Allergies Allergen ID Allergen Name Allergen Category Reaction Reaction Severity Criticality Documentation Date Start Date Code Code System Note Provider Name and Address Organization Details Recorded Time 130195 Product containin g penicilli n (product) medicatio n Not available Not available Not available 09/16/2023 79534 8001 SNOMED Tori wallace [facility] 4 09:55:07 Medications Name Sig Start Date Stop Date Status Note LastModified by Organization Details LastModified Time buspirone 5 mg tablet TAKE 1 TABLET BY MOUTH TWICE A DAY (4PM &8PM) FOR ANXIETY. (CAN ALSO TAKE AT 12PM & 8PM) active Not Available Not Available No t Available cefpodoxime 200 mg tablet TAKE 1 TABLET BY MOUTH TWICE A DAY active Not Available Not Available No t Available azithromyci n 250 mg tablet TAKE 2 TABLETS BY MOUTH TODAY, THEN TAKE 1 TABLET DAILY FOR 4 DAYS DIRECTED active Not Available Not Available No t Available melatonin 3 mg tablet TAKE 1-2 TABLETS BY MOUTH EVERY NIGHT AT BEDTIME NEEDED TAKE 3-6MG AT BEDTIME NEEDED FOR SLEEP active Not Available Not Available No t Available levothyroxi ne 100 mcg tablet TAKE 1 TABLET BY MOUTH EVERY DAY BEFORE BREAKFAST active Not Available Not Available No t Available codeine 10 mg-guaifene sin 100 mg/5 mL oral liquid TAKE 10 ML BY MOUTH TWICE A DAY NC active Not Available Not Available No t Available gabapentin 100 mg capsule TAKE 1 CAPSULE BY MOUTH AT BEDTIME. active Not Available Not Available No t Available metoprolol succinate ER 25 mg tablet,exte nded release 24 hr TAKE 1 TABLET BY MOUTH EVERY DAY active Not Available Not Available No t Available levofloxaci n 500 mg tablet TAKE 1 TABLET BY MOUTH EVERY DAY FOR 10 DAYS active Not Available Not Available No t Available methylpredn isolone 4 mg tablets in a dose pack TAKE 6 TABLETS ON DAY 1 DIRECTED ON PACKAGE AND DECREASE BY 1 TAB EACH DAY FOR A TOTAL OF 6 DAYS active Not Available Not Available No t Available colestipol 1 gram tablet TAKE 1 TABLET BY MOUTH 2 TIMES A DAY. active Not Available Not Available No t Available Ventolin HFA 90 mcg/actuati on aerosol inhaler INHALE 2 PUFFS INTO THE LUNGS EVERY 6 HOURS NEEDED FOR COUGH, WHEEZING OR SHORTNESS OF BREATH. active Not Available Not Available No t Available Laxative (bisacodyl) 5 mg tablet,leslie yed release TAKE 2 TABS AT 6PM DIRECTED. 09/15 completed Not Available Not Available Not Available vitamin J76-rbpve acid injection solution Take 25 mg by injection route. active Not Available Not Available No t Available melatonin 1 mg tablet TAKE 1-3 TABLET BY MOUTH EVERY NIGHT AT BEDTIME TAKE 1-3 MG AT BEDTIME NEEDED FOR SLEEP active Not Available Not Available No t Available aripiprazol e 2 mg tablet TAKE 1 TABLET BY MOUTH EVERY MORNING MOOD STABILIZA TION active Not Available Not Available No t Available sevelamer carbonate 800 mg tablet TAKE 1 TABLET BY MOUTH 3 TIMES A DAY WITH MEALS, X3 DAYS. SWALLOW TABLET WHOLE DO NOT CRUSH OR CHEW. active Not Available Not Available No t Available GaviLyte-G 236 gram-22.74 gram-6.74 gram-5.86 gram oral solution PLEASE SEE ATTACHED FOR DETAILED DIRECTION S 09/15 completed Not Available Not Available Not Available Vitals Date Recorded Body height Body mass index (BMI) Body weight Provider Name and Address Organization Details Last Updated DateTime 09/16/2023 157.48 cm 34.6 kg/m2 74273.96 g Tori Kent [place] - [facility] 09/16/2023 10:12:41 Social History None recorded. Functional [...] Details Recorded Time influenza nasal, unspecified formulation 4 completed Tori wallace [place] - [facility] 09/16/2023 09:57:57 Past Encounters Encounter ID Performer Location Encounter Start Date Encounter Closed Date Diagnosis/Indication Diagnosis SNOMED-CT Code Diagnosis ICD10 Code Diagnosis IMO Codes Diagnosis Note [id number] LILA STAPLETON PA-C [facility] [address] [phone] 09/16/2023 09:31:51 09/16/2023 10:19:24 Sensorineural hearing loss of bilateral ears 937170437 H90.3 Right Ear:Normal hearing through 500 Hz sloping to a severe SNHL with excellent speech discrimina tion.Type A tympanogra m.Left Ear:Normal hearing through 500 Hz sloping to a severe SNHL with excellent speech discrimina tion.Type A tympanogra m. Bilateral tinnitus 72833 [address] 102 H93.13 Health Concerns Section Related Observation LastModified by Organization Detai ls LastModified Time None Recorded Concern Status LastModified by Organization Details LastModified Time None Recorded Advance Directives Directive None Recorded Payers Insurance Date Sequence Insurance Name Policy Number Policy Archer Covered Member ID Archer Member ID Guarantor Name 09/20/2024 1 [facility] (MEDICAID REPLACEMENT - HMO) [id number] Notes Date Note Type Note Provider Name and Address Organization Details Recorded Time 09/16/2023 text/html ROS as noted in the HPI 47-year-old female presents for evaluation of hearing loss. She reports longstanding hearing loss, worse on the left. Denies family history of hearing loss. Denies prior otologic history. Admits to bilateral longstanding tinnitus that is unchanged, but denies otalgia, otorrhea, and vertigo. LLIA STAPLETON PA-C [address] [place] [address], [phone], [facility] - [facility] 09/16/2023 10:30:22 OBGyn Episode No OBEpisode recorded.
== END 2024-11-23 10:39 | disposition home or self-care (01) ==
LOC: HO.HOS 09:29
PROVIDERS: PCP Internal Medicine
DX: G56.03 Carpal tunnel syndrome, bilateral upper limbs (principal)
CPT/HCPCS: 99204

== ENCOUNTER → 2024-11-23 09:29 | Outpatient (BNVA) | payer OTHER, SELFPAY | PROVIDERS: PCP Internal Medicine | DX: G56.03 Carpal tunnel syndrome, bilateral upper limbs (principal) | CPT/HCPCS: 99202 ==

== ENCOUNTER 2024-12-26 10:31 | Day surgery (SDC) | payer OTHER, SELFPAY ==
--- OUTSIDE RECORDS SUMMARY | 2023-11-11 13:27 | XMS_ITS | Encounter Summary ---
Author Organization [facility] Address [address] [place] [address] Care Team Providers Care Aluminum Boat Assembly Supervisor Name Role Phone Loly Browne MD Primary [...] care for your loved ones. For example, early childhood assistant or elderly care for an older adult? [...] is your living situation? Unrecognized valu e 01/27/2024 Comments No Sex and Gender Information Value Date Recorded Sex Assigned at Female 03/16/2024 2:15 PM EST Legal Sex Female 3:09 PM EST Gender Identity Female 03/16/2024 2:15 PM EST Sexual Orientation Straight 03/16/2024 2 :15 PM EST documented as of this encounter [...] Care Team (Late st Contact Info) Description 12/21/2024 2:30 PM EST Appointment [facility] Infusion Center [address] [place] [phone] 12/28/2024 9:30 AM EST Office Visit Adult Medicine [facility] [address] [place] [phone] Karena Bolton PA [address] [place], [place] 04/26/2025 11:30 AM EDT Office Visit [facility] Hematology Oncology [address] [place] [phone] Mounika Elise DO [address] [place] [address] documented as of this encounter Visit Diagnoses Not on filedocumented in this encounter Care Teams Aluminum Boat Assembly Supervisor Relationship Specialty Start Date End Date Loly Browne MD PCP - General Internal Medicine 09/09/21 01/05/24 documented as of this encounter
--- OUTSIDE RECORDS SUMMARY | 2023-12-09 13:59 | XMS_ITS | Encounter Summary ---
Author Organization [facility] Address [address] [place] [address] Care Team Providers Care Associate Faculty Name Role Phone Loly Browen MD Primary Care Prov ider Encounter Details [...] for your loved ones. For example, child development professor or elderly care for an older adult? [...] Info) Description 12/21/2024 2:30 PM EST Appointment [facility] Infusion Center [address] [place] [phone] 12/28/2024 9:30 AM EST Office Visit Adult Medicine [facility] [address] [place] [address] Karena Bolton PA [address] [place], [place] 04/26/2025 11:30 AM EDT Office Visit [facility] Hematology Oncology [address] [place] [phone] Mounika Elise DO [address] [place] [address] documented as of this encounter Visit Diagnoses Not on filedocumented in this encounter Care Teams Associate Faculty Relationship Specialty Start Date End Date Loly Browne MD PCP - General Internal Medicine 09/09/21 01/05/24 documented as of this encounter
--- OUTSIDE RECORDS SUMMARY | 2024-11-23 13:59 | XMS_ITS | Encounter Summary ---
Author Organization [facility] Address [address] [place] [address] Care Team Providers Care Global Commodity Manager Name Role Phone Loly Browne MD Primary Care Prov ider Reason for Visit * Reason Comments B12 Injection * Episode Based Medications (Routine) - Authorized Specialty Diagnoses / Procedures Referred By Contmiriam t Referred To Contact Diagnoses B12 deficiency Mounika Elise DO [address] [place] [address] Phone: tel: fax: [address] [phone] Phone: tel: fax: Referral ID Status Reason Start Date Expiration Date V isits Requested Visits Authorized [id number] Authorized 12/10/2023 12/09/2024 1 12 Encounter Details Date Type Department Care Team (Latest Contact Info) Description 11/23/2024 1:59 PM EDT - 11/23/2024 11:59 PM EDT Hospital Encounter [address] [phone] Mounika Elise DO [address] [place] [phone] B12 deficiency (Primary Dx) Discharge Disposition: Home or Self Care Social History Tobacco Use Types Packs/Day Years [...] care for your loved ones. For example, childcare teacher or elderly care for an older [...] Sign Reading Time Taken Comments Blood Pressure 108/54 11/23/2024 2:35 PM EDT Pulse 67 11/23/2024 2:35 PM EDT Temperature 36.6 C (97.8 F) 11/23/2024 2:35 PM EDT Respiratory Rate 16 11/23/2024 2:35 PM EDT Oxygen Saturation 100% 11/23/2024 2:35 PM EDT Inhaled Oxygen Concentration - - Weight - - Height - - Body Mass Index - - documented in this encounter Medications at Time of Discharge albuterol HFA (PROAIR HFA ; PROVENTIL HFA ; VENTOLIN HFA) 90 mcg/actuation inhaler Inhale 2 puffs by mouth. 12/02/2023 cyanocobalamin (VITAMIN B-12) 1,000 mcg/mL injection Inject 1 mL (1,000 mcg total) into the muscle every 30 (thirty) days. levothyroxine (SYNTHROID, LEVOTHROID) 100 mcg tablet TAKE 1 TABLET BY MOUTH 1 TIME EACH DAY BEFORE BREAKFAST. 90 tablet 2 04/28/2024 colestipoL (COLESTID) 1 gram tablet Take 1 tablet (1 g total) by mouth 2 (two) times a day. 180 each 1 03/02/2024 11/28/2024 gabapentin (NEURONTIN) 100 mg capsule Take 1 capsule (100 mg total) by mouth at bedtime. 90 each 06/28/2024 11/28/2024 metoprolol succinate (TOPROL-XL) 25 mg 24 hr tablet Take by mouth daily. 11/28/2024 documented as of this encounter Discharge Disposition Disposition Code Departure Means Destination Home or Self Care documented in this encounter Progress Notes * Zo Conroy RN - 11/23/2024 2:30 PM EDT 1448- Patient arrives, ambulatory to unit for monthly Vitamin B12 injection. She presents with a stable assessment and offers no concerns or complaints. She has no questions for this nurse. Injectionreleased from treatment plan to pharmacy. Once verified, Vitamin B12 injection administered into the left upper arm. She tolerated this well. Band-aid applied to site. Next monthly appointment booked, printed and given to patient. She left the unit stable, ambulatory without questions or concerns. documented in this encounter Plan of Treatment Upcoming Encounters Date Type Department Care Team (Late st Contact Info) Description 12/21/2024 2:30 PM EST Appointment [facility] [address] [place] [phone] 12/28/2024 9:30 AM EST Office Visit Adult Medicine [address] [phone] Karena Bolton PA [address] [place], [place] 04/26/2025 11:30 AM EDT Office Visit [facility] Hematology Oncology [address] [place] [phone] Mounika Elise DO [address] [place] [address] documented as of this encounter Visit Diagnoses Diagnosis B12 deficiency- Primary documented in this encounter Administered Medications Inactive Administered Medications - up to 3 most recent administrations Medication Order MAR Action Action Date Dose Rate Site cyanocobalamin (VITAMIN B-12) injection 1,000 mcg 1,000 mcg, subcutaneous, Once, On Thu11/23/24 at 1445, For 1 dose, Administer as deep subcutaneous injection. Avoid injection into the dermis or upper subcutaneous tissue.Indications:B12 deficiency Given 11/23/2024 2:46 PM EDT 1,000 mcg Left Upper Arm (Back) documented in this encounter Orders Medications Ordered That Oscar ht Not Have Been Administered Count Last Ordered Date First Ordered Date cyanocobalamin (VITAMIN B-12 ) injection 1,000 mcg 1 11/23/2024 Appointment Requests Count Last Ordered Date Fi rst Ordered Date ONCBCN INFUSION APPOINTMENT REQUEST 04 1 documented in this encounter Additional Health Concerns Assessment Noted Time PHQ-9 Depression Total Score: 15 025 10:32 AM EDT documented as of this encounter Care Teams Global Commodity Manager Relationship Specialty Start Date End Date Loly Browne MD [address] [place] [phone] PCP - General Internal Medicine 01/06/24 documented as of this encounter
--- OUTSIDE RECORDS SUMMARY | 2024-11-28 12:30 | XMS_ITS | Encounter Summary ---
Author Organization [facility] Address [address] [place] [address] Care Team Providers Care Coach Name Role Phone Loly Browne MD Primary Care Prov ider Reason for Referral * Medications - Authorized Specialty Diagnoses / Procedures Referred By Mary Ann t Referred To Contact Diagnoses Class 2 severe obesity due to excess calories with serious comorbidity and body mass index (BMI) of 39.0 to 39.9 in adult Loly Browne MD [address] [place] [address] Phone: tel: fax: Referral ID Status Reason Start Date Expiration Date V isits Requested Visits Authorized [id number] Authorized 11/29/2024 02/08/2025 1 1 Reason for Visit * Reason Comments Follow-up 4 month follow up Encounter Details Date Type Department Care Team (Late st Contact Info) Description 11/28/2024 12:30 PM EDT Office Visit Adult Medicine [address] [phone] Loly Browne MD [address] [place] [address] Atrial fibrillation, unspecified type (CMS/HCC V24, CMS/HCC V28) (Primary Dx); Hypothyroidism, unspecified type; B12 deficiency; Class 2 severe obesity due to excess calories with serious comorbidity and body mass index (BMI) of 39.0 to 39.9 in adult; Need for prophylactic vaccination and inoculation against influenza; Screening for depression Social History Tobacco Use Types Packs/Day Years [...] for your loved ones. For example, childcare provider or elderly care for an older adult? [...] Sign Reading Time Taken Comments Blood Pressure 90/61 11/28/2024 12:25 PM EDT Pulse 77 11/28/2024 12:25 PM EDT Temperature 36.1 C (97 F) 11/28/2024 12:25 PM EDT Respiratory Rate 14 11/28/2024 12:25 PM EDT Oxygen Saturation 98% 11/28/2024 12:25 PM EDT Inhaled Oxygen Concentration - - Weight 97.6 kg (215 lb 3.2 oz) 11/28/2024 12:25 PM EDT Height 157.5 cm (5' 2 ) 11/28/2024 12:25 PM EDT Body Mass Index 39.36 11/28/2024 12:25 PM EDT documented in this encounter Ordered Prescriptions Prescription Sig Dispense Quantity Refills Last Filled Start Date End Date tirzepatide, weight loss, (Zepbound) 2.5 mg/0.5 mL injectionIndicatio ns:Class 2 severe obesity due to excess calories with serious comorbidity and body mass index (BMI) of 39.0 to 39.9 in adult Inject 0.5 mL (2.5 mg total) under the skin every 7 (seven) days. 2 mL 11/28/2024 buPROPion (WELLBUTRIN) 75 mg tablet Take 1 tablet (75 mg total) by mouth 1 (one) time each day for 14 days, THEN 1 tablet (75 mg total) 2 (two) times a day. 194 each 11/28/2024 03/12/2025 metoprolol succinate (TOPROL-XL) 25 mg 24 hr tablet Take 1 tablet (25 mg total) by mouth 1 (one) time each day. Do not crush or chew.Take by mouth daily. 90 each 3 11/28/2024 documented in this encounter Progress Notes * Loly Browne MD - 11/28/2024 12:30 PM EDTAssociated Problem(s): Atrial fibrillation (CMS/HCC V24, CMS/HCC V28) Currently well controlled on metoprolol. Evaluated by cardiology. Asymptomatic. Patient does not have any symptoms, denies any palpitations, dizziness, shortness of breath. We will continue metoprolol. * Loly Browne MD - 11/28/2024 12:30 PM EDTAssociated Problem(s): Hypothyroidism Hypothyroidism is well-controlled on levothyroxine 100 mcg a day. TSH this year within normal limits. Will continue same dose. * Loly Browne MD - 11/28/2024 12:30 PM EDTAssociated Problem(s): B12 deficiency On B12 infusions every month with hematology. Will recheck B12 levels today. Orders: Vitamin B12; Future * Sara Nelson MA - 11/28/2024 12:30 PM EDT INFLUENZA VACCINE The patient acknowledges that they will be receiving the Influenza (Flu) vaccine today: yes Flu vaccine formulation is: Flucelvax (preservative free): Patient denies allergy to previous flu vaccine. yes Immunization tab reviewed: Patient acknowledges they have NOT received a flu vaccine for the . yes Denies history of Guillain-Gurnee Syndrome (severe muscle weakness). yes Acknowledges reviewing the VIS Seasonal Flu (copy made available). yes Patient Denies moderate or severe illness or fever of >100 degrees F. yes Agrees to wait in the office/car for 20 minutes after receiving the influenza injection. yes No restriction for Influenza vaccine administered IM See Imm/Inj tab. Electronically signed by: Sara Nelson MA 11/28/2024 12:28 PM EDT * Loly Browne MD - 11/28/2024 12:30 PM EDT Images from the original note were not included. Chief Complaint Anne-Marie Ortiz is a 49 y.o. female presenting for Follow-up (4 month follow up ) Subjective Patient with a pmh of hypothyroidism, depression, paroxismal Afib, s/p bariatric surgery 2017, comes for med review. Feels well, compliant with medications. Follows with cardiology for Afib, not on anticoagulation. With for depression. Patient is very concerned because she has been gaining weight for the last 2 years. Already evaluated by nutrition this year, she has been following the recommended diet, and is very active physically for her job but she has not seen any improvement on her weight. 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 The following portions of the patient's history were reviewed by a provider in this encounter and updated as appropriate: Allergies: She is allergic to penicillins. Medications: Current Outpatient Medications Medication Instructions albuterol HFA (PROAIR HFA ; PROVENTIL HFA ; VENTOLIN HFA) 90 mcg/actuation inhaler 2 puffs colestipoL (COLESTID) 1 g, oral, 2 times daily cyanocobalamin (VITAMIN B-12) 1,000 mcg/mL injection Inject 1 mL (1,000 mcg total) into the muscle every 30 (thirty) days. gabapentin (NEURONTIN) 100 mg, oral, Nightly levothyroxine (SYNTHROID, LEVOTHROID) 100 mcg, oral, Daily with breakfast metoprolol succinate (TOPROL-XL) 25 mg 24 hr tablet Take by mouth daily. Depression Screening (PHQ2/9): Depression Screening Over the last 2 weeks, how often have you been bothered by little interest or pleasure in doing things?: (Patient-Rptd) Several days Over the last 2 weeks, how often have you been bothered by feeling down, depressed, or hopeless?: (Patient-Rptd) More than half the days Depression Risk: (Patient-Rptd) 3 PHQ9 Full Set of Questions Over the last 2 weeks, how often have you been bothered by little interest or pleasure in doing things?: (Patient-Rptd) Several days Over the last 2 weeks, how often have you been bothered by feeling down, depressed, or hopeless?: (Patient-Rptd) More than half the days Over the last 2 weeks, how often have you been bothered by trouble falling or staying asleep, or sleeping too much?: (Patient-Rptd) Nearly every day Over the last 2 weeks, how often have you been bothered by feeling tired or having little energy?: (Patient-Rptd) More than half the days Over the last 2 weeks, how often have you been bothered by poor appetite or overeating? : (Patient-Rptd) Nearly every day Over the last 2 weeks, how often have you been bothered by feeling bad about yourself -- or that you are a failure or have let yourself or your family down?: (Patient-Rptd) More than half the days Over the last 2 weeks, how often have you been bothered by trouble concentrating on things, such asreading the newspaper or watching television?: (Patient-Rptd) More than half the days Over the last 2 weeks, how often have you been bothered by moving or speaking so slowly that other people could have noticed? Or the opposite -- being so fidgety or restless that you have been movingaround a lot more than usual?: (Patient- Rptd) Not at all Over the last 2 weeks, how often have you been bothered by thoughts that you would be better off or of hurting yourself in some way?: (Patient-Rptd) Not at all PHQ -9 Depression Risk Score: (Patient-Rptd) 15 Screening Result: (Patient-Rptd) Positive Risk Category: (Patient-Rptd) Moderately Severe Objective BP 90/61 Pulse 77 Temp 36.1 ??C (97 ??F) (Temporal) Resp 14 Ht 1.575 m (62 ) Wt 97.6 kg (215 lb 3.2 oz) BMI 39.36 kg/m?? SpO2: 98 % Physical Exam Vitals reviewed. Constitutional: Appearance: Normal appearance. Cardiovascular: Rate and Rhythm: Normal rate and regular rhythm. Heart sounds: Normal heart sounds. Pulmonary: Effort: Pulmonary effort is normal. Breath sounds: Normal breath sounds. Musculoskeletal: General: No swelling. Normal range of motion. Cervical back: Neck supple. Skin: General: Skin is warm. Neurological: General: No focal deficit present. Mental Status: She is alert. Assessment/Plan Assessment & Plan Atrial fibrillation, unspecified type (CMS/HCC V24, CMS/HCC V28) Currently well controlled on metoprolol. Evaluated by cardiology. Asymptomatic. Patient does not have any symptoms, denies any palpitations, dizziness, shortness of breath. We will continue metoprolol. Hypothyroidism, unspecified type Hypothyroidism is well-controlled on levothyroxine 100 mcg a day. TSH this year within normal limits. Will continue same dose. B12 deficiency On B12 infusions every month with hematology. Will recheck B12 levels today. Orders: Vitamin B12; Future Class 2 severe obesity due to excess calories with serious comorbidity and body mass index (BMI) of39.0 to 39.9 in adult BMI 39.3. 215 pounds. Patient has tried to lose weight by adjusting her diet, increasing the protein intake and decreasing carbohydrates. She follows the dietitian recommendations, she states she is very active for her job, however does not have a regular exercise routine. CMP, TSH, lipid panel, within normal limits this year. Patient underwent a sleeve surgery in 2017, however she does not want to consider a revision. She would like to try medications. Today we discussed about bupropion that would also help with her depressive symptoms. Will start a low-dose of 75 mg, and taper up to evaluate for tolerance. A prescription was sent for tirzepatide 2.5 mg a week. Will increase to 5 mg after the first month. Patient is encouraged to follow closely with her database specialist and discuss her weight management with them. Will follow-up in 1 month. Orders: tirzepatide, weight loss, (Zepbound) 2.5 mg/0.5 mL injection; Inject 0.5 mL (2.5 mg total) under the skin every 7 (seven) days. Need for prophylactic vaccination and inoculation against influenza Orders: Influenza trivalent, MDCK, 0.5mL, preservative free (Flucelvax) 6mo and older Screening for depression Positive screening, care is ongoing. Will add bupropion today. All questions and concerns were addressed. Patient verbalizes understanding and agrees with above treatment plan. Patient was advised to contact the office with any worsening symptoms or if new or existing problems arise. Patient to follow- up in 1 months. I have applied the code G2211 to this patient???s visit as the primary care provider, associated with longitudinal, non-procedural care. Our team has an ongoing relationship with the patient in the management of her medical conditions. Loly Mcnamara MD ADULT MEDICINE [address] Dept: [phone] Dept Date of Visit: 11/28/2024 documented in this encounter Plan of Treatment Upcoming Encounters Date Type Department Care Team (Late st Contact Info) Description 12/21/2024 2:[address] [facility] [address] [place] [phone] 12/28/2024 9:30 AM EST Office Visit [address] [phone] Karena Bolton PA [address] [place], [place] 04/26/2025 11:30 AM EDT Office Visit [facility] Hematology Oncology [address] [place] [phone] Mounika Elise DO [address] [place] [address] documented as of this encounter Results * Vitamin B12 (11/28/2024 1:07 PM EDT) [facility] Vitamin B-12 532 250 - 900 pcg/mL LAB CHEMISTRY METHOD 11/28/2024 5:38 PM EDT [facility] Blood Venous blood specimen / Unknown Venipuncture / Unknown 11/28/2024 1:07 PM EDT 11/28/2024 1:07 PM EDT us Loly Browne MD LAB BLOOD ORDERABL ES Final Result [facility] [address] [place] [address], [place] [phone] documented in this encounter Visit Diagnoses Diagnosis Atrial fibrillation, unspecified type (CMS/HCC V24, CMS/HCC V28)- Primary Hypothyroidism, unspecified type B12 deficiency Class 2 severe obesity due to excess calories with serious comorbidity and body mass index (BMI) of 39.0 to 39.9 in adult Need for prophylactic vaccination and inoculation against influenza Screening for depression documented in this encounter Discontinued Medications Medication Sig Discontinue Reason Start Date End Da te colestipoL (COLESTID) 1 gram tablet Take 1 tablet (1 g total) by mouth 2 (two) times a day. Therapy completed 03/02/2024 11/28/2024 gabapentin (NEURONTIN) 100 mg capsule Take 1 capsule (100 mg total) by mouth at bedtime. Therapy completed 06/28/2024 11/28/2024 metoprolol succinate (TOPROL-XL) 25 mg 24 hr tablet Take by mouth daily. Reorder 11/28/2024 documented as of this encounter Orders Immunization/Injection Count Last Ordered Date First Ordered Date INFLUENZA TRIVALENT, MDCK, 0 .5ML, PRESERVATIVE FREE (FLUCELVAX) 6MO AND OLDER 1 11/28/2024 documented in this encounter Additional Health Concerns Assessment Noted Time PHQ-9 Depression Total Score: 15 025 10:32 AM EDT documented as of this encounter Care Teams Coach Relationship Specialty Start Date End Date Loly Browne MD [address] [place] [phone] PCP - General Internal Medicine 01/06/24 documented as of this encounter
--- OUTSIDE RECORDS SUMMARY | 2024-11-28 14:00 | XMS_ITS | Encounter Summary ---
Author Organization [facility] Address [address] [place] [address] Care Team Providers Care [employer] Management Professor Name Role Phone Loly Browne MD Primary Care Prov ider Reason for Visit * Reason Comments Follow-up Encounter Details Date Type Department Care Team (Late st Contact Info) Description 11/28/2024 2:00 PM EDT Office Visit [facility] Hematology Oncology [address] [place] [phone] Mounika Elise, DO [address] [place] [address] Iron deficiency anemia, unspecified iron deficiency anemia type (Primary Dx); B12 deficiency Social History Tobacco Use Types Packs/Day Years [...] for your loved ones. For example, child specialist or elderly care for an older adult? [...] Sign Reading Time Taken Comments Blood Pressure 106/59 11/28/2024 2:18 PM EDT Pulse 79 11/28/2024 2:18 PM EDT Temperature 36.8 C (98.2 F) 11/28/2024 2:18 PM EDT Respiratory Rate - - Oxygen Saturation 100% 11/28/2024 2:18 PM EDT Inhaled Oxygen Concentration - - Weight 97.5 kg (215 lb) 11/28/2024 2:18 PM EDT Height 157.5 cm (5' 2 ) 11/28/2024 2:18 PM EDT Body Mass Index 39.32 11/28/2024 2:18 PM EDT documented in this encounter Progress Notes * Mounika Elise, DO - 11/28/2024 2:00 PM EDT Hematology/Oncology Progress Note 11/28/24 Subjective Patient identifier: 49 y.o. with pernicious anemia Interim history: Patient is here for routine follow up. She is having more fatigue for pats month. Also with intermittent headaches and some vertigo. Also feels cold as well. She was evaluated for her hands, found to have carpel tunnel will have right sided surgery in [place]. Constitutional: see above. Resp/CV: No cough, shortness of breath, chest pain GI: No nausea, vomiting, diarrhea, abdominal pain Skin: No rashes Neuro: No headaches, dizziness, neuropathy Musculoskeletal: No bone pain, no joint pain. Hem/Lymph : No bruising or bleeding Hematologic history: Patient first presented in May 2020 in this office was seen by Dr. Ahumada. At that time she was taking oral vitamin B12 and oral iron. She also reported symptoms of pica. At that time her hemoglobin was 9.9 with an MCV of 76.9. He recommended initiation of monthly IM B12 injections. At that time in July 2020 she also received 2 doses of Feraheme. She continues on monthly B12 injections under the care of her PCP. Patient last seen in this office August 2020 at which time she was recommended to continue with primary care follow-up. She then returned when she had a recurrence of her B12 deficiency and anemia. She has since been resumed on weekly and then monthly B12 injections. Objective Last Vitals Vitals: 11/28/24 1418 BP: 106/59 Pulse: 79 Temp: 36.8 ??C (98.2 ??F) SpO2: 100% General: well appearing, in no acute distress HENT: no scleral icterus Resp: clear to auscultation bilaterally Cardio: regular rate and rhythm, Abdomen: soft non tender, non distended Neuro: alert and oriented, normal speech Medications Current Outpatient Medications: albuterol HFA (PROAIR HFA ; PROVENTIL HFA ; VENTOLIN HFA) 90 mcg/actuation inhaler, Inhale 2 puffs by mouth., Disp: , Rfl: buPROPion (WELLBUTRIN) 75 mg tablet, Take 1 tablet (75 mg total) by mouth 1 (one) time each day for14 days, THEN 1 tablet (75 mg total) 2 (two) times a day., Disp: 194 each, Rfl: 0 cyanocobalamin (VITAMIN B-12) 1,000 mcg/mL injection, Inject 1 mL (1,000 mcg total) into the muscleevery 30 (thirty) days., Disp: , Rfl: levothyroxine (SYNTHROID, LEVOTHROID) 100 mcg tablet, TAKE 1 TABLET BY MOUTH 1 TIME EACH DAY BEFOREBREAKFAST., Disp: 90 tablet, Rfl: 2 metoprolol succinate (TOPROL-XL) 25 mg 24 hr tablet, Take 1 tablet (25 mg total) by mouth 1 (one) time each day. Do not crush or chew.Take by mouth daily., Disp: 90 each, Rfl: 3 tirzepatide, weight loss, (Zepbound) 2.5 mg/0.5 mL injection, Inject 0.5 mL (2.5 mg total) under the skin every 7 (seven) days., Disp: 2 mL, Rfl: 0 Allergies Allergies Allergen Reactions Penicillins Past medical history, past surgical history, and family history reviewed. Medical history Anxiety Hypothyroidism Vit D deficiency Arthritis Ascus Surgical history C- section Tubal ligation Cholcystectomy Lap band Family history Family History Problem Relation Name Age of Onset Cancer Mother Hypertension Father Diabetes Maternal Grandmother CAD Diabetes Maternal Grandfather CAD Heart attack Father Breast cancer Mother age 52 Labs Lab Results Component Value Date WBC 4.8 11/28/2024 HGB 11.4 (L) 11/28/2024 HCT 37.4 11/28/2024 MCV 83.9 11/28/2024 PLT 233 11/28/2024 Lab Results Component Value Date IRON 43 11/28/2024 TIBC 276 11/28/2024 FERRITIN 88 06/15/2024 Lab Results Component Value Date [id number] 532 11/28/2024 Assessment & Plan 49 y.o. female who presents for follow-up of pernicious anemia. She had low vitamin B12 and iron levels as well as vitamin D deficiency. This is likely multifactorial in the setting of sleeve gastrectomy as well as positive antibodies for pernicious anemia. Her blood counts are stable and b12 much better after loading and now monthly injections. Vitamin B12 deficiency due to pernicious anemia Iron deficiency anemia Ordered blood work to be performed today CBC iron, ferritin, B12 No need for further ferraheme at this point Plan to continue monthly B12 indefinitely, in the future can consider self administering at home Vitamin D deficiency Completed course of D supplement Recommend pcp follow this up in the future. Family history of cancer She is overdue for mammogram, recommend she discuss with PCP and obtain orders. Sign Sharla Elise DO - Hematology/Oncology [facility] CC: Loly Mcnamara MD documented in this encounter Plan of Treatment Upcoming Encounters Date Type Department Care Team (Late st Contact Info) Description 12/21/2024 2:30 PM EST Appointment [facility] Infusion Center [address] [place] [phone] 12/28/2024 9:30 AM EST Office Visit Adult Medicine [facility] [address] [place] [address] Karena Bolton PA [address] [place] [address] 04/26/2025 11:30 AM EDT Office Visit [facility] Hematology Oncology [address] [place] [phone] Mounika Elise DO [address] [place] [phone] documented as of this encounter Procedures Procedure Name Priority Date/Time Associated Diagnosis Comments FERRITIN Add-On 11/28/2024 2:56 PM EDT documented in this encounter Results * Ferritin (11/28/2024 2:56 PM EDT) Ferritin 35 8 - 252 ng/mL LAB CHEMISTRY METHOD 11/29/2024 8:59 AM EDT [facility] Blood Venous blood specimen / Unknown Venipuncture / Unknown 11/28/2024 2:56 PM EDT 11/28/2024 4:46 PM EDT Mounika Elise DO LAB BLOOD ORDERABLES Final Result [facility] [address] [place] [address], [place] [phone] * Iron and TIBC (11/28/2024 2:56 PM EDT) Iron 43 40 - 150 mcg/dL LAB CHEMISTRY METHOD 11/28/2024 8:11 PM EDT [facility] TIBC 276 250 - 450 mcg/dL LAB CHEMISTRY METHOD 11/28/2024 8:11 PM EDT [facility] Iron Saturation 16 15 - 50 % LAB CHEMISTRY METHOD 11/28/2024 8:11 PM EDT [facility] Blood Venous blood specimen / Unknown Venipuncture / Unknown 11/28/2024 2:56 PM EDT 11/28/2024 4:46 PM EDT Mounika Elise DO LAB BLOOD ORDERABLES Final Result [facility] [address] [place] [address], [place] [phone] documented in this encounter Visit Diagnoses Diagnosis Iron deficiency anemia, unspecified iron deficiency anemia type- Primary B12 deficiency documented in this encounter Additional Health Concerns Assessment Noted Time PHQ-9 Depression Total Score: 15 025 10:32 AM EDT documented as of this encounter Care Teams [employer] Management Professor Relationship Specialty Start Date End Date Loly Browne MD [address] [place] [phone] PCP - General Internal Medicine 01/06/24 documented as of this encounter
--- OUTSIDE RECORDS SUMMARY | 2024-11-29 17:23 | XMS_ITS | Encounter Summary ---
Author Organization [facility] Address [address] [place] [address] Care Team Providers Care [employer] Brm Developer Name Role Phone Loly Browne MD Primary Care Prov ider Encounter Details Date Type Department Care Team (Late st Contact Info) Description 11/29/2024 Results Follow-Up Adult [address] [phone] Loly Browne MD [address] [place], [place] Social History Tobacco Use Types Packs/Day Years [...] care for your loved ones. For example, teacher early childhood development or elderly care for an older adult? [...] PM EST documented as of this encounter Plan of Treatment Upcoming Encounters Date Type Department Care Team (Late st Contact Info) Description 12/21/2024 2:30 PM EST Appointment [facility] Infusion Center [address] [facility] [address] [place] [phone] 12/28/2024 9:30 AM EST Office Visit Adult Medicine [address] [phone] Karena Bolton PA [address] [place], [place] 04/26/2025 11:30 AM EDT Office Visit [facility] Hematology Oncology [address] [place] [phone] Mounika Elise DO [address] [place] [address] documented as of this encounter Visit Diagnoses Not on filedocumented in this encounter Additional Health Concerns Assessment Noted Time PHQ-9 Depression Total Score: 15 025 10:32 AM EDT documented as of this encounter Care Teams [employer] Brm Developer Relationship Specialty Start Date End Date Loly Browne MD [address] [place], [place] PCP - General Internal Medicine 01/06/24 documented as of this encounter
--- OUTSIDE RECORDS SUMMARY | 2024-11-29 17:24 | XMS_ITS | Data Portability ---
Author Organization [place] - [facility], Allergy Address [address] [place] [phone] Assessment Encounter Date Assessment Date Assessment LastModified [...] audiometric testing, or sooner with any concerns. [email or web address] Not available 09/16/2023 10:29:26 Plan of Treatment [...] Sensorineur al hearing loss of bilateral ears [id number] Active 2023 SEVEN WEISS [address], [phone] - [facility] 09:45:10 Bilateral tinnitus [id number] Active 2023 LILA STAPLETON PA-C 100 [facility], [address], [place], [address], [place] - [facility] 4 10:28:33 Problem Notes None recorded. Procedures Surgical History Date Name Laterality Status Provider Name and Address Organization Details Recorded Time 09/16/19 24 Comp Audio with Tymps - 88244 & 49335 completed SEVEN WEISS 100 [facility], [place], [phone], [facility] - [facility] 09/16/2023 09:45:14 Cerv cancer screen docd completed Tori Kent [place] - [facility] 09/16/2023 09:58:28 mammogram - symptomatic completed Tori Kent [place] - [facility] 09/16/2023 09:58:59 colonoscopy completed Tori Kent [place] - [facility] 09/16/2023 09:59:13 section completed Tori Kent [place] - [facility] 09/16/2023 09:59:32 procedure on gallbladder completed Tori Kent [place] - [facility] 09/16/2023 09:59:58 Imaging Results None recorded. Procedure Notes None recorded. Medical Equipment None Reported. Allergies Allergen ID Allergen Name Allergen Category Reaction Reaction Severity Criticality Documentation Date Start Date Code Code System Note Provider Name and Address Organization Details Recorded Time 365191 Product containin g penicilli n (product) medicatio n Not available Not available Not available 09/16/2023 56784 8001 SNOMED Tori wallace [facility] 4 09:55:07 Medications Name Sig Start Date [...] Not Available Not Available Not Available vitamin H47-yadrz acid injection solution Take 25 mg by [...] Updated DateTime 09/16/2023 157.48 cm 34.6 kg/m2 65436.96 g Tori Kent [place] - [facility] 09/16/2023 10:12:41 Social History None recorded. Functional [...] wallace [place] - [facility] 09/16/2023 09:57:57 Past Encounters Encounter ID Performer Location Encounter Start Date Encounter Closed Date Diagnosis/Indication Diagnosis SNOMED-CT Code Diagnosis ICD10 Code Diagnosis IMO Codes Diagnosis Note [id number] LILA STAPLETON PA-C [facility] [address] [phone] 09/16/2023 09:31:51 09/16/2023 10:19:24 Sensorineural hearing loss of bilateral ears 367219210 H90.3 Right Ear:Normal hearing through 500 Hz sloping to a severe SNHL with excellent speech discrimina tion.Type A tympanogra m.Left Ear:Normal hearing through 500 Hz sloping to a severe SNHL with excellent speech discrimina tion.Type A tympanogra m. Bilateral tinnitus 54964 14234 102 H93.13 Health Concerns Section Related Observation LastModified by Organization Detai ls LastModified Time None Recorded Concern Status LastModified by Organization Details LastModified Time None Recorded Advance Directives Directive None Recorded Payers Insurance Date Sequence Insurance Name Policy Number Policy Archer Covered Member ID Archer Member ID Guarantor Name 09/20/2024 1 [facility] (MEDICAID REPLACEMENT - HMO) [id number] Notes Date Note Type Note [...] otalgia, otorrhea, and vertigo. LILA STAPLETON PA-C [address] [place] [address], [phone], [facility] - [facility] 09/16/2023 10:30:22 OBGyn Episode No OBEpisode recorded.
--- OUTSIDE RECORDS SUMMARY | 2024-11-29 17:24 | XMS_ITS | Clinical Summary ---
Author Organization [facility] Address [address] [place] [address] Phone Care Team Providers Care Pyrotechnics Press Tender Name Role Phone Loly Browne MD Primary Care Prov ider Allergies Active Allergy Reactions Criticality Noted Date Comments Penicillins 07/05/2020 Medications cyanocobalamin (VITAMIN B-12) 1,000 mcg/mL injection Inject 1 mL (1,000 mcg total) into the muscle every 30 (thirty) days. Active albuterol HFA (PROAIR HFA ; PROVENTIL HFA ; VENTOLIN HFA) 90 mcg/actuation inhaler Inhale 2 puffs by mouth. 4 Active levothyroxine (SYNTHROID, LEVOTHROID) 100 mcg tablet TAKE 1 TABLET BY MOUTH 1 TIME EACH DAY BEFORE BREAKFAST. 90 tablet 2 5 Active metoprolol succinate (TOPROL-XL) 25 mg 24 hr tablet Take 1 tablet (25 mg total) by mouth 1 (one) time each day. Do not crush or chew.Take by mouth daily. 90 each 3 5 Active buPROPion (WELLBUTRIN) 75 mg tablet Take 1 tablet (75 mg total) by mouth 1 (one) time each day for 14 days, THEN 1 tablet (75 mg total) 2 (two) times a day. 194 each 5 03/12/19 26 Active tirzepatide, weight loss, (Zepbound) 2.5 mg/0.5 mL injectionIndicat ions:Class 2 severe obesity due to excess calories with serious comorbidity and body mass index (BMI) of 39.0 to 39.9 in adult Inject 0.5 mL (2.5 mg total) under the skin every 7 (seven) days. 2 mL Active metoprolol succinate (TOPROL-XL) 25 mg 24 hr tablet Take by mouth daily. 11/29/19 Discontinu ed(Reorder ) colestipoL (COLESTID) 1 gram tablet Take 1 tablet (1 g total) by mouth 2 (two) times a day. 180 each 1 5 11/29/19 Discontinu ed(Therapy completed) gabapentin (NEURONTIN) 100 mg capsule Take 1 capsule (100 mg total) by mouth at bedtime. 90 each 5 11/29/19 Discontinu ed(Therapy completed) Active Problems Problem Noted Date Diagnosed Date Paresthesia of upper extremity 06/28/2024 Fibromyalgia 06/28/2024 Pain in both hands 06/28/2024 Right arm pain 06/28/2024 Left arm pain 06/28/2024 Pain in both forearms 06/28/2024 Cervical radiculopathy 06/28/2024 Muscle weakness 06/28/2024 S/P bariatric surgery 01/27/2024 S/P cholecystectomy 01/27/2024 Chronic diarrhea 01/27/2024 Vitamin D deficiency 08/18/2016 B12 deficiency 09/13/2015 Assessment & Plan (11/28/2024 1:00 PM EDT): On B12 infusions every month with hematology. Will recheck B12 levels today. Orders: Vitamin B12; Future Assessment & Plan (07/27/2024 10:10 AM EDT): Anxiety 08/07/2015 Overview (04/15/2023): F/u at [facility] Atrial fibrillation ([facility] V24, [facility] V28) 0 08/07/2015 Assessment & Plan (11/28/2024 1:00 PM EDT): Currently well controlled on metoprolol. Evaluated by cardiology. Asymptomatic. Patient does not have any symptoms, denies any palpitations, dizziness, shortness of breath. We will continue metoprolol. Assessment & Plan (07/27/2024 10:10 AM EDT): Hypothyroidism 08/07/2015 Assessment & Plan (11/28/2024 1:00 PM EDT): Hypothyroidism is well-controlled on levothyroxine 100 mcg a day. TSH this year within normal limits. Will continue same dose. Assessment & Plan (07/27/2024 10:10 AM EDT): Iron deficiency anemia 08/07/2015 Encounters Date Type Department Care Team Description 11/29/2024 Results Follow-Up Adult Medicine [address] [phone] Loly Malloy MD 11/28/2024 2:00 PM EDT Office Visit [facility] Oncology [address] [place] [phone] Mounika Elise DO Iron deficiency anemia, unspecified iron deficiency anemia type (Primary Dx); B12 deficiency 11/28/2024 12:30 PM EDT Office Visit Adult Medicine [address] [phone] Loly Malloy MD Atrial fibrillation, unspecified type (CMS/HCC V24, CMS/HCC V28) (Primary Dx); Hypothyroidism, unspecified type; B12 deficiency; Class 2 severe obesity due to excess calories with serious comorbidity and body mass index (BMI) of 39.0 to 39.9 in adult; Need for prophylactic vaccination and inoculation against influenza; Screening for depression 11/23/2024 1:59 PM EDT - 11/23/2024 11:59 PM EDT Hospital Encounter [facility] [address] [place] [phone] Mounika Elise DO B12 deficiency (Primary Dx) Discharge Disposition: Home or Self Care 10/26/2024 2:52 PM EDT - 10/26/2024 11:59 PM EDT Hospital Encounter [facility] [address] [place] [phone] Mounika Elise DO B12 deficiency (Primary Dx) Discharge Disposition: Home or Self Care 10/19/2024 Telephone Adult Medicine [address] [phone] Kaye Orellana [place] 09/28/2024 3:24 PM EDT - 09/28/2024 11:59 PM EDT Hospital Encounter [facility] [address] [place] [phone] Mounika Elise DO B12 deficiency (Primary Dx) Discharge Disposition: Home or Self Care from Last 3 Months Immunizations Immunization Administration Dates Next Due Influenza trivalent, MDCK, 0 .5mL, preservative free (Flucelvax) 6mo and older 11/28/2024 Surgical History Surgery Date Site/Laterality Comments OTHER [...] anemia DX:Iron d eficiency anemia Atrial fibrillation (CMS/HCC V24, CMS/HCC V28) DX:Atrial fibrillation (HCC) B12 deficiency DX:B12 deficienc y Anxiety DX:Anxiety Hypothyroidism DX:Hypothyroidis m Hypothyroidism 08/07/2015 DX:Hypothyroidis m Atrial fibrillation (CMS/HCC V24, CMS/HCC V28) 08/07/2015 DX:Atrial fibrillation (HCC) Morbid obesity (CMS/HCC V24, CMS/HCC V28) 08/07/2015 DX:Morbid obesity (HCC) Iron deficiency [...] for your loved ones. For example, child daycare worker or elderly care for an older adult? [...] F) 11/28/2024 2:18 PM EDT Respiratory Rate 14 11/28/2024 12:25 PM EDT Oxygen Saturation 100% 11/28/2024 2:18 PM EDT Inhaled Oxygen Concentration - - Weight 97.5 kg (215 lb) 11/28/2024 2:18 PM EDT Height 157.5 cm (5' 2 ) 11/28/2024 2:18 PM EDT Body Mass Index 39.32 11/28/2024 2:18 PM EDT Plan of Treatment Upcoming Encounters Date Type Department Care Team (Late st Contact Info) Description 12/21/2024 2:30 PM EST Appointment [facility] [address] [place] [phone] 12/28/2024 9:30 AM EST Office Visit Adult Medicine [facility] [address] [place], [place] [phone] Karena Bolton PA [address] [place], [place] 04/26/2025 11:30 AM EDT Office Visit [facility] Hematology Oncology [address] [place] [phone] Mounika Elise, [address] [place] [address] Health Maintenance Due Date Last Done Comments Cervical Cancer Screening: Pap Smear 11/13/1996 Hepatitis C Screening 01/18/2022 Social Influencers of Health Screening 01/26/2025 01/27/2024 [...] Screening Completed 07/15/2023 Depression Screening Completed 11/21/2024 Influenza Vaccine Completed 11/28/2024, , 01/11/2022, Additional history exists HIB Vaccines Aged Out No longer eligi [...] Comments FERRITIN Add-On 11/28/2024 2:56 PM EDT CBC WITH AUTO DIFFERENTIAL Routine 11/28/2024 2:56 PM EDT Iron deficiency anemia, unspecified iron deficiency anemia type B12 deficiency IRON AND TIBC Routine 11/28/2024 2:56 PM EDT Iron deficiency anemia, unspecified iron deficiency anemia type B12 deficiency CBC AND DIFFERENTIAL Routine 11/28/2024 2:56 PM EDT Iron deficiency anemia, unspecified iron deficiency anemia type B12 deficiency VITAMIN B12 Routine 11/28/2024 1:07 PM EDT B12 deficiency MS SLEEP STUDY ATTENDED Routine 09/21/2024 10:25 AM EDT LIPID PANEL WITH REFLEX TO DIRECT LDL Routine 05/23/2024 8:42 AM EDT Hypothyroidism, unspecified type Atrial fibrillation, unspecified type (CMS/HCC V24, CMS/HCC V28) from Last 3 Months or Most Recently Relevant to Health Maintenance Results * (ABNORMAL) CBC auto differential (11/28/2024 2:56 PM EDT) [facility] WBC 4.8 4.8 - 10.8 [facility] LAB HEMETOLOGY METHOD 11/28/2024 4:56 PM EDT [facility] RBC 4.50 3.80 - 4.80 M/mcL LAB HEMETOLOGY METHOD 11/28/2024 4:56 PM EDT [facility] Hemoglobin 11.4(L) 11.5 - 16.0 g/dL LAB HEMETOLOGY METHOD 11/28/2024 4:56 PM EDT [facility] Hematocrit 37.4 35.0 - 47.0 % LAB HEMETOLOGY METHOD 11/28/2024 4:56 PM EDT [facility] MCV 83.9 79.0 - 98.0 FL LAB HEMETOLOGY METHOD 11/28/2024 4:56 PM EDT [facility] MCH 25.6(L) 27.0 - 32.0 pcg LAB HEMETOLOGY METHOD 11/28[facility]2024 4[facility] MCHC 30.5(L) 32.0 - 37.0 g/dL LAB HEMETOLOGY METHOD 11/28/2024 4:56 [facility] RDW 13.5 11.0 - 15.0 % LAB HEMETOLOGY METHOD 11/28/2024 4:56 PM EDT [facility] Platelets 233 130 - 400 K/mcL LAB HEMETOLOGY METHOD 11/28/2024 4:56 [facility] MPV 9.6 7.0 - 11.0 FL LAB HEMETOLOGY METHOD 11/28/2024 4:56 PM [facility] NRBC 0.0 <1.0 % LAB HEMETOLOGY METHOD 11/28/2024 4:56 PM EDT [facility] NRBC Absolute 0.00 <0.10 K/mcL LAB HEMETOLOGY METHOD 11/28/2024 4:56 PM [facility] Neutrophils Relative 52.7 % LAB HEMETOLOGY METHOD 11/28/2024 4:56 PM EDT [facility] Lymphocytes Relative 27.2 % LAB HEMETOLOGY METHOD 11/28/2024 4:56 PM EDT [facility] Monocytes Relative 15.6 % LAB HEMETOLOGY METHOD 11/28/2024 4:56 PM EDT [facility] Eosinophils Relative 2.9 % LAB HEMETOLOGY METHOD 11/28/2024 4:56 PM EDT [facility] Basophils Relative 1.2 % LAB HEMETOLOGY METHOD 11/28/2024 4:56 PM EDT [facility] Immature Granulocytes Relative 0.4 % LAB HEMETOLOGY METHOD 11/28/2024 4:56 PM EDT [facility] Neutrophils Absolute 2.54 1.50 - 7.00 K/mcL LAB HEMETOLOGY METHOD 11/28/2024 4:56 PM EDT [facility] Lymphocytes Absolute 1.31 1.00 - 5.00 K/mcL LAB HEMETOLOGY METHOD 11/28/2024 4:56 PM EDT [facility] Monocytes Absolute 0.75 0.20 - 1.00 K/mcL LAB HEMETOLOGY METHOD 11/28/2024 4:56 PM EDT [facility] Eosinophils Absolute 0.14 0.00 - 0.50 K/mcL LAB HEMETOLOGY METHOD 11/28/2024 4:56 PM EDT [facility] Basophils Absolute 0.06 0.00 - 0.20 K/mcL LAB HEMETOLOGY METHOD 11/28/2024 4:56 PM EDT [facility] Immature Granulocytes Absolute 0.02 0.00 - 0.03 K/mcL LAB HEMETOLOGY METHOD 11/28/2024 4:56 PM EDT [facility] Blood Venous blood specimen / Unknown Venipuncture / Unknown 11/28/2024 2:56 PM EDT 11/28/2024 4:46 PM EDT us Mounika Elise DO LAB BLOOD ORDERABLES Final Result [facility] [address] [place] [address], [place] [phone] * Iron and TIBC (11/28/2024 2:56 PM EDT) [facility] Iron 43 40 - 150 mcg/dL LAB CHEMISTRY METHOD 11/28/2024 8:11 PM EDT [facility] TIBC 276 250 - 450 mcg/dL LAB CHEMISTRY METHOD 11/28/2024 8:11 PM EDT [facility] Iron Saturation 16 15 - 50 % LAB CHEMISTRY METHOD 11/28/2024 8:11 PM EDT [facility] Blood Venous blood specimen / Unknown Venipuncture / Unknown 11/28/2024 2:56 PM EDT 11/28/2024 4:46 PM EDT Mounika Elise DO LAB BLOOD ORDERABLES Final Result [facility] [address] [place] [address], [place] [phone] * Ferritin (11/28/2024 2:56 PM EDT) [facility] Ferritin 35 8 - 252 ng/mL LAB CHEMISTRY METHOD 11/29/2024 8:59 AM EDT [facility] Blood Venous blood specimen / Unknown Venipuncture / Unknown 11/28/2024 2:56 PM EDT 11/28/2024 4:46 PM EDT Mounika Elise DO LAB BLOOD ORDERABLES Final Result [facility] [address] [place] [address], [place] [phone] * Vitamin B12 (11/28/2024 1:07 PM EDT) [facility] Vitamin B-12 532 250 - 900 pcg/mL LAB CHEMISTRY METHOD 11/28/2024 5:38 PM EDT [facility] Blood Venous blood specimen / Unknown Venipuncture / Unknown 11/28/2024 1:07 PM EDT 11/28/2024 1:07 PM EDT Loly Browne MD LAB BLOOD ORDERABL ES Final Result [facility] [address] [place] [address], [place] [phone] * General sleep study (09/21/2024 10:25 AM EDT) Historical Provider SLEEP CENTER ORDERABLES F inal Result * Lipid panel with reflex to direct LDL (05/23/2024 8:42 AM EDT) Cholesterol 147 0 - 200 mg/dL LAB CHEMISTRY METHOD 05/23/2024 9:35 AM [facility] Triglycerides 96 0 - 150 mg/dL LAB CHEMISTRY METHOD 05/23/2024 9:35 AM [facility] HDL 64 >=40 mg/dL LAB CHEMISTRY METHOD 05/23/2024 9:35 AM [facility] LDL Calculated 64 0 - 100 mg/dL LAB CHEMISTRY METHOD 05/23/2024 9:35 AM [facility] VLDL Cholesterol Major 19.2 mg/dL LAB CHEMISTRY METHOD 05/23/2024 9:35 AM EDT [facility] Non HDL Chol. (LDL+VLDL) 83 <145 mg/dL LAB CHEMISTRY METHOD 05/23/2024 9:35 AM [facility] Chol/HDL Ratio 2.3 0.0 - 4.4 LAB CHEMISTRY METHOD 05/23/2024 9:35 AM [facility] Blood Venous blood specimen / Unknown Venipuncture / Unknown 05/23/2024 8:42 AM EDT 05/23/2024 8:57 AM EDT us Maritza BANG LAB BLOOD ORDERABLES Final Resul t [facility] [address] [place] [address], from Last 3 Months or Most Recently Relevant to Health Maintenance Insurance [facility] [employer] Care Teams Pyrotechnics Press Tender Relationship Specialty Start Date End Date Loly Browne MD [address] [place] [phone] PCP - General Internal Medicine 01/06/24
--- OUTSIDE RECORDS SUMMARY | 2024-11-29 17:24 | XMS_ITS | Clinical Summary ---
Author Organization [facility] Address [address] [place] [address] Care Team Providers Care Automotive Maintenance Technician Name Role Phone Loly Wing MD Primary [...] age to complete this topic Care Teams Automotive Maintenance Technician Relationship Specialty Start Date End Date Loly Wing MD [address] [place] [address] PCP - General Internal Medicine 12/10/22
--- NOTE | 2024-12-26 10:00 | MHC.SHP ---
Pre-Procedural Eval Section A - 24 Hr Update-Section A only Date of Service: 12/26/24 The patient is an INPATIENT: No Changes since office visit: No Cold of Flu in the past 2 weeks, No New Medical Problems, No Changes in Medication and No Patient answered all questions The patient has been examined within 24 hours of the surgical procedure. The History & Physical has been completed within 30 days and I have reviewed it.: Yes Section B - Complete if H&P > 30 days Chief Complaint: Carpal tunnel syndrome, right upper limb Allergies: Allergies Allergy/AdvReac Type Severity Reaction Status Date / Time Penicillins Allergy Unknown Unknown Verified 11/23/24 09:56 Plan Diagnosis/Plan: Unchanged I have reviewed the history and physical and performed a pertinent physical examination on my patient. No changes have occurred unless specified. Time Spent With Patient Time: Total time managing care of this patient today ____ minutes.
--- NOTE | 2024-12-26 10:00 | W.PM.OPN ---
Operative Note Operative Note Date of Service: 12/26/24 Narrative: Preop diagnosis: 1. Right Carpal tunnel syndrome Postop diagnosis: same Procedure: 1. Right Carpal tunnel release Surgeon: Nikkie River MD Weapons And Tactics Instructor: None Anesthesia: local block using 1% lidocaine with epinephrine Findings: Thickened transverse carpal ligament. EBL: Less than 5 mL Specimens: None Complications: None Disposition: Brought to recovery room in stable condition Plan: Follow-up for 10-14 days for wound check and suture removal Indications: The patient is 49 years old, with right carpal tunnel syndrome that has been unresponsive to nonoperative management. The risks and benefits of operative treatment including but not limited to risk of damage to blood vessels, nerves, tendons, infection, persistent pain, persistent symptoms, or possible need for additional surgery were discussed with the patient and the patient wishes to proceed with surgery. Procedure: Once consent was obtained a local block was performed using a combination of 1% lidocaine with epinephrine. The patient was then brought back to the operating suite and placed on the operative table in supine position. The right upper extremity was prepped and draped in a standard surgical fashion. Once assured that we had a good block, a 2.0 cm longitudinal incision was made centered over the carpal tunnel. The incision was made through the skin to the subcutaneous tissues using a #15 blade. Dissection was made down to the level of the transverse carpal ligament with care being taken to protect the palmar cutaneous nerve. Once the transverse carpal ligament was clearly visualized, a longitudinal incision was made in the transverse carpal ligament 1st using a #15 blade, then using tenotomy scissors under direct visualization. Care was taken to look for and protect the motor branch of the median nerve when seen in this area. Once satisfied with our carpal tunnel release the wound was copiously irrigated with normal saline and hemostasis was obtained with a brief period of local pressure. The skin edges were reapproximated with some 5.0 nylon suture material and a sterile dressing was applied. The patient appears to have tolerated the procedure well and with no complications. All digits were well vascularized at the conclusion of the case.
[2024-12-26 12:20] VITALS: BP 115/59; PULSE 72; RESP 16; TEMP 36.6; O2SAT 98; BMI 38.2
[2024-12-26 14:25] VITALS: BP 118/66; PULSE 74; RESP 16; TEMP 36.4; O2SAT 99
== END 2024-12-26 14:29 | disposition home or self-care (01) ==
PROVIDERS: PCP Internal Medicine; Visit Provider Orthopaedic Surgery
PROC: (CPT 64721; principal; 2024-12-26 13:00)
DX: G56.01 Carpal tunnel syndrome, right upper limb (principal); R20.0 Anesthesia of skin; R20.2 Paresthesia of skin; Z88.0 Allergy status to penicillin
CPT/HCPCS: 64721; J0165; J2003

== ENCOUNTER → 2024-12-26 10:31 | Outpatient (BNV) | payer OTHER, SELFPAY | PROVIDERS: PCP Internal Medicine; Visit Provider Orthopaedic Surgery | DX: G56.01 Carpal tunnel syndrome, right upper limb (principal) | CPT/HCPCS: 64721 ==

== ENCOUNTER 2024-12-28 13:11 | Outpatient (AMB) | payer OTHER, SELFPAY ==
--- NOTE | 2024-12-28 13:21 | MHC.OFFVIS ---
Intake Visit Reasons: 3 months VR Allergies Penicillins Allergy (Unknown, Verified 12/28/24 13:29) Unknown Medication List - Last Reconciled 12/28/24 by Angela Pozo CNP bupropion HCl mg PO hydrocodone-acetaminophen 5-325 mg 1 tab PO Q4-6H PRN hydrocodone-acetaminophen 5-325 mg 1 tab PO Q4-6H PRN levothyroxine 100 mcg PO QAM metoprolol succinate ER 25 mg PO DAILY HPI Comments Details: 49-year-old woman with hypothyroidism, atrial fibrillation, and bilateral CTS who presented in 09/2024 with symptoms of daily pain, numbness, and tingling to both hands since early 06/2024 that was worse at night and affected her ability to sleep. No neck pain or stiffness. No lower extremity complaints. She was doing okay. She saw [facility] orthopedic surgeons and had R CTS release on 12/26/2024 which went well. Numbness and tingling to fingers on right seemed to be less. She was still getting some numbness and tingling to left that would come and go. It was not as severe as symptoms on the right had been. 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 Review of Systems Const Denies chills, Denies daytime sleepiness, Reports difficulty sleeping, Denies fatigue, Denies fever(s), Denies frequent falls, Denies headache(s), Denies increased appetite, Denies poor appetite, Denies snoring, Denies weakness, Denies weight gain and Denies weight loss Eyes Denies loss of vision ENT Denies vertigo, Denies dizziness, Denies headache(s) and Denies neck pain Card Denies chest pain at rest, Denies chest pain with activity, Denies syncope, Denies leg edema, Denies palpitations, Denies dyspnea and Denies dyspnea on exertion Resp Denies cough, Denies dyspnea, Denies dyspnea on exertion and Denies snoring GI Denies abdominal pain, Denies constipation, Denies heartburn, Denies diarrhea and Denies nausea Denies urinary frequency, Denies urinary incontinence and Denies urinary urgency Musc Denies abnormal gait, Denies back pain, Denies myalgias, Denies arthralgias, Denies neck pain, Reports numbness and Reports tingling Neuro Denies abnormal gait, Denies vertigo, Denies dizziness, Denies syncope, Denies frequent falls, Denies headache(s), Denies lack of coordination, Denies loss of vision, Denies memory loss, Reports numbness, Denies Other visual disturbances, Denies restless legs, Denies seizure-like activity, Reports tingling, Denies paresthesias, Denies tremor(s) and Denies weakness Psych Denies anxiety, Denies depression, Denies auditory hallucinations, Denies memory loss and Denies visual hallucinations Endo Denies fatigue and Denies palpitations Physical Exam Const Other: General Appearance:? normal, in no acute distress. Heart:? S1, S2 normal, no murmurs. Lungs:? clear anteriorly and posteriorly. Musculoskeletal:? normal. Extremities:? no edema. Psych:? alert, oriented, cognitive function intact, cooperative with exam. Neuro Other: Abnormal Neurological Findings:?R hand in surgical splint s/p R CTS release on 12/26/2024. Moderate L APB weakness (previously bilaterally, R > L). Decreased sensation in the median nerve distribution bilaterally with sparing of the 5th finger and ulnar half of the ring finger bilaterally. Mental Status: alert and oriented X 3. Normal attention, orientation, memory, and affect. Cranial Nerves: Pupils are equal, round, and reactive to light. External ocular muscles are intact. Visual [place] are full, no ptosis. Face is symmetrical, no facial weakness or droop. Facial sensations are normal. Tongue protrudes in midline. Palate elevates symmetrically. Shoulder shrugging is normal Motor Examination: As above. Sensory Exam: As above. Coordination: No ataxia. No titubation. Gait Exam: Within normal limits. Cerebellar Signs: Tiryau-wj-tioj and fznq-fq-xsak is normal. Extrapyramidal System: No tremor, rigidity with normal facial expressions. No bradykinesia. No bradyphrenia. Normal arm swing and posture. No propulsion or retropulsion. Speech: Normal. Results Reviewed Results Reviewed: 08/11/24 NCV/EMG : Moderately severe carpal tunnel syndrome bilaterally with significant motor axonal loss in the right median nerve. Normal EMG in the right C5-T1 innervated muscles. Assessment & Plan Assessment & Plan (1) Carpal tunnel syndrome, bilateral upper limbs: Code(s): G56.03 - Carpal tunnel syndrome, bilateral upper limbs Category: Medical Plan: She saw [facility] orthopedic surgeons and had R CTS release on 12/26/2024 which went well and has follow up in early 01/2025. She was considering L CTS release in the future, conservative management reviewed. Plan Refer for CTS decompression to Hand surgeon. Coding Level of Care Code Est Pt Level 4 (79607) Diagnoses Carpal tunnel syndrome, bilateral upper limbs G56.03
--- OUTSIDE RECORDS SUMMARY | 2024-12-29 01:04 | XMS_ITS | Clinical Summary ---
Author Organization [facility] Address [address] [place] [id number] Care Team Providers Care Flight Control Manager Name Role Phone Loly Wing MD Primary [...] age to complete this topic Care Teams Flight Control Manager Relationship Specialty Start Date End Date Loly Wing MD [address] [place] [address] PCP - General Internal Medicine 12/10/22
--- OUTSIDE RECORDS SUMMARY | 2024-12-29 01:04 | XMS_ITS | Data Portability ---
Author Organization [place] [facility] Address [address] [place] [phone] Assessment Encounter Date Assessment Date Assessment LastModified [...] audiometric testing, or sooner with any concerns. Not available 09/16/2023 10:29:26 Plan of Treatment [...] Sensorineur al hearing loss of bilateral ears [id number] Active 2023 [facility] [address], [address] [facility] 09:45:10 Bilateral tinnitus [id number] Active 2023 LILA STAPLETON PA-C [address] [facility], [place], [address], [place] - [facility] 4 10:28:33 Problem Notes None recorded. Procedures Surgical History Date Name Laterality Status Provider Name and Address Organization Details Recorded Time 09/16/19 24 Comp Audio with Tymps - 60609 & 50592 completed [facility] [address] [facility], [place], [address], [facility] - [facility] 09/16/2023 09:45:14 Cerv cancer screen docd completed Tori Kent [place] - [facility] 09/16/2023 09:58:28 mammogram - symptomatic completed Tori Kent [place] - [facility] 09/16/2023 09:58:59 colonoscopy completed Tori Kent [place] - [facility] 09/16/2023 09:59:13 section completed Tori Kent [place] - [facility] 09/16/2023 09:59:32 procedure on gallbladder completed Tori Kent [place] - [facility] 09/16/2023 09:59:58 Imaging Results None recorded. Procedure Notes None recorded. Medical Equipment None Reported. Allergies Allergen ID Allergen Name Allergen Category Reaction Reaction Severity Criticality Documentation Date Start Date Code Code System Note Provider Name and Address Organization Details Recorded Time 032905 Product containin g penicilli n (product) medicatio n Not available Not available Not available 09/16/2023 22314 8001 SNOMED Tori wallace [facility] 4 09:55:07 Medications Name Sig Start [...] Not Available Not Available Not Available vitamin A85-jlafs acid injection solution Take 25 mg by [...] Updated DateTime 09/16/2023 157.48 cm 34.6 kg/m2 35022.96 g Tori Kent [place] - [facility] 09/16/2023 10:12:41 Social History None recorded. Functional Status None recorded. Mental Status None recorded. Family History Nothing Reported. Medical History Condition Response Heart Problems Y Anxiety Y Thyroid Problems Y Depression Y Anemia Y Gynecological HistoryNo gynecological history recorded. Obstetrics History GPAL:G 0 P 0 0 0 0 Immunizations Vaccine Type Date Status Note Provider Nam e and Address Organization Details Recorded Time influenza nasal, unspecified formulation 4 completed Tori wallace [place] - [facility] 09/16/2023 09:57:57 Past Encounters Encounter ID Performer Location Encounter Start Date Encounter Closed Date Diagnosis/Indication Diagnosis SNOMED-CT Code Diagnosis ICD10 Code Diagnosis IMO Codes Diagnosis Note [id number] LILA STAPLETON PA-C [facility] [address] [address] 09/16/2023 09:31:51 09/16/2023 10:19:24 Sensorineural hearing loss of bilateral ears 209225738 H90.3 Right Ear:Normal hearing through 500 Hz sloping to a severe SNHL with excellent speech discrimina tion.Type A tympanogra m.Left Ear:Normal hearing through 500 Hz sloping to a severe SNHL with excellent speech discrimina tion.Type A tympanogra m. Bilateral tinnitus 28137 53756 102 H93.13 Health Concerns Section Related Observation LastModified by Organization Detai ls LastModified Time None Recorded Concern Status LastModified by Organization Details LastModified Time None Recorded Advance Directives Directive None Recorded Payers Insurance Date Sequence Insurance Name Policy Number Policy Archer Covered Member ID Archer Member ID Guarantor Name 09/20/2024 1 [facility] (MEDICAID REPLACEMENT - HMO) [id number] Notes Date Note Type Note Provider Name [...] otalgia, otorrhea, and vertigo. LILA STAPLETON PA-C [address] [address], [phone], [facility] - [facility] 09/16/2023 10:30:22 OBGyn Episode No OBEpisode recorded.
== END 2024-12-28 13:34 | disposition home or self-care (01) ==
LOC: HO.HSM 13:12
PROVIDERS: PCP Internal Medicine; Visit Provider Registered Nurse
DX: G56.03 Carpal tunnel syndrome, bilateral upper limbs (principal)
CPT/HCPCS: 99214

== ENCOUNTER → 2024-12-28 13:11 | Outpatient (BNVA) | payer OTHER, SELFPAY | PROVIDERS: PCP Internal Medicine; Visit Provider Registered Nurse | DX: G56.03 Carpal tunnel syndrome, bilateral upper limbs (principal) | CPT/HCPCS: 99212 ==

== ENCOUNTER 2025-01-11 11:18 | Outpatient (AMB) | payer OTHER, SELFPAY ==
--- OUTSIDE RECORDS SUMMARY | 2023-11-11 12:27 | XMS_ITS | Encounter Summary ---
Author Organization [facility] Address [address] [place] [address] Care Team Providers Care Infantry Assaultman Name Role Phone Loly Browne MD Primary Care Prov ider Encounter Details Date Type Department Care Team (Late st Contact Info) Description 11/11/2023 1:27 PM EDT Hospital Encounter TH HISTORIC ENCOUNTERS EASTERN CONVERSION ONLY Social History Tobacco Use Types Packs/Day Years Used Date Smoking Tobacco: Never Smokeless Tobacco: Never Alcohol Use Standard Drinks/Week Comments No 0 (1 standard drink = 0.6 oz pur e alcohol) Housing Instability Answer Date Recorde d Are you worried that in the next 2 months you may not have stable housing? No 12/28/2024 Food Access & Nutrition Answer Date Rec orded Do you have access to a vari ety of food including fruits and vegetables? Yes 12/28/2024 Health Literacy Answer Date Recorded How often do you need to hav e someone help you when you read instructions, pamphlets, or other written material from your doctor or pharmacy? Never 12/28/2024 Caregiver: How often do you need to have someone help you when you read instructions, pamphlets, or other written material from your doctor or pharmacy? Not on file 12/28/2024 Financial Risk Answer Date Recorded How hard is it for you to pa y for the very basics like food, housing, medical care, and air conditioning / heating? Not very hard 12/28/2024 Transportation Answer Date Recorded Has the lack of transportati on kept you from meetings, work, or from getting things needed for daily living? No Has the lack of transportati on kept you from medical appointments or from getting medications? No 12/28/2024 Social Isolation Answer Date Recorded How often do you feel lonely or isolated from th ose around you? Never 12/28/2024 Food Risk Answer Date Recorded Within the past 12 months we worried whether our food would run out before we got money to buy more. Never true 12/28/2024 Within the past 12 months th e food we bought just didn't last and we didn't have money to get more. Never true 12/28/2024 Dependent Care Answer Date Recorded Do you need help finding or paying for care for your loved ones. For example, childbirth and infant care teacher or elderly care for an older adult? No 12/28/2024 Education Answer Date Recorded Do you think completing more education or training, like finishing a GED, going to college, or learning a trade, would be helpful for you? No 12/28/2024 Employment and Income Answer Date Recor ded During the last four weeks, have you been actively looking for work? No 12/28/2024 Living Situation Answer Date Recorded What is your living situation? Unrecognized valu e 12/28/2024 Comments No Sex and Gender Information Value Date Recorded Sex Assigned at Female 03/16/2024 2:15 PM EST Legal Sex Female 3:09 PM EST Gender Identity Female 03/16/2024 2:15 PM EST Sexual Orientation Straight 03/16/2024 2: 15 PM EST documented as of this encounter Last Filed Vital Signs Vital Sign Reading Time Taken Comments Blood Pressure - - Pulse - - Temperature - - Respiratory Rate - - Oxygen Saturation - - Inhaled Oxygen Concentration - - Weight 86.2 kg (190 lb) 10/21/2023 10:09 AM EDT Height 157.5 cm (5' 2 ) 10/21/2023 10:09 AM EDT Body Mass Index 34.75 10/21/2023 10:09 AM EDT documented in this encounter Functional Status * Calculated C-SSRS Risk Score (Lifetime/Recent) Answer Date of Assessment Author No Risk Indicated 12/28/2024 10:00 AM EST Karena Bolton PA * [place] Suicide Severity Rating Scale (Screener/Recent Self-Report) Question Answer Date of Assessment Author 1. Wish to be (Past 1 Month) No 025 10:00 AM EST Karena Bolton PA 2. Non-Specific Active Suici venecia Thoughts (Past 1 Month) No 12/28/2024 10:00 AM EST Yareli Bolton PA 6. Suicidal Behavior (Lifetime) No 10:00 AM EST Karena Bolton PA documented as of this encounter Progress Notes * Historical, Notes Results - 11/11/2023 2:00 PM EDT Anne-Marie arrives ambulatory for her second feraheme infusions and also her monthly B12 injection. Stableassessment completed - IV placed to left arm with no difficulty. Has drinks - lights off in room - patient resting comfortably in recliner - call landaverde in reach. 1402 - B12 injection given in left arm subcutaneously. Well tolerated. 1433- Feraheme infusion up on pump as ordered. 1521 - Infusion completed - well tolerated. Patient has next appt in place. IV flushed and removed intact. Stable upon discharge. documented in this encounter Plan of Treatment Upcoming Encounters Date Type Department Care Team (Late st Contact Info) Description 01/18/2025 1:30 PM EST Appointment [facility] In[facility] [address] [place] [address] [phone] 02/08/2025 11:00 AM EST Appointment Radiology Department - [address] [phone] 04/05/2025 9:30 AM EST Office Visit Adult Medicine [facility] - [address] [phone] Loly Browne MD [address] [place] [address] [phone] 04/26/2025 11:30 AM EDT Office Visit [facility] Hematology Oncology [address] [place] [address] [phone] Mounika Elise, DO [address] [place] [address] documented as of this encounter Visit Diagnoses Not on filedocumented in this encounter Care Teams Infantry Assaultman Relationship Specialty Start Date End Date Loly Browne MD PCP - General Internal Medicine 09/09/21 01/05/24 documented as of this encounter
--- OUTSIDE RECORDS SUMMARY | 2023-12-09 12:59 | XMS_ITS | Encounter Summary ---
Author Organization [facility] Address [address] [place] [address] Care Team Providers Care Ground Wood Supervisor Name Role Phone Loly Browne MD Primary Care Prov ider Encounter Details Date Type Department Care Team (Late st Contact Info) Description 12/09/2023 1:59 PM EDT Hospital Encounter TH HISTORIC ENCOUNTERS [...] care for your loved ones. For example, child support officer or elderly care for an older adult? [...] 10:00 AM EST Karena Bolton PA * [place] Suicide Severity Rating Scale (Screener/Recent Self-Report) Question Answer Date of Assessment Author 1. Wish to be (Past 1 Month) No 025 10:00 AM Karena Gonzalez PA 2. Non-Specific Active Suici venecia Thoughts (Past 1 Month) No 12/28/2024 10:00 AM EST Yareli Bolton PA 6. Suicidal Behavior (Lifetime) No 10:00 AM Karena Gonzalez PA documented as of this encounter Progress Notes * Historical, Notes Results - 12/09/2023 2:[address] arrives ambulatory for monthly B12 injection. Pt reports she had been experiencing BULLARD and ended up having walking pneumonia on CXR. Pt has been on prednisone taper and different antibiotics. Pt had follow up yesterday with MD and said it was starting to clear. Pt wearing mask, denies any cough or fevers. B12 injection given in right arm subcutaneously. Well tolerated. Stable upon dischargewith next apts in place.?? documented in this encounter Plan of Treatment Upcoming Encounters Date Type Department Care Team (Late st Contact Info) Description 01/18/2025 1:[address] [facility] Infusion Center [address] [place] [phone] 02/08/2025 11:00 AM EST Appointment Radiology Department - [address] [phone] 04/05/2025 9:30 AM EST Office Visit Adult Medicine [facility] - [address] [phone] Loly Browne MD [address] [place] [address] 04/26/2025 11:30 AM EDT Office Visit [facility] Hematology Oncology [address] [place] [phone] Mounika Elise DO [address] [place] [phone] documented as of this encounter Visit Diagnoses Not on filedocumented in this encounter Care Teams Ground Wood Supervisor Relationship Specialty Start Date End Date Loly Browne MD PCP - General Internal Medicine 09/09/21 01/05/24 documented as of this encounter
[2025-01-11 11:23] VITALS: BMI 38.0
--- NOTE | 2025-01-11 11:23 | MHC.OFFVIS ---
Vital Signs 01/11/25 11:23 Height 5 ft 2 in Weight 208 lb BMI 38.0 Intake Visit Reasons: PO-Right Carpal Tunnel Release 12/26/24 Intake Note: Anne-Marie is a 49 year old left hand dominant female who presents today for her first post operative visit s/p Right Carpal Tunnel Release, DOS: 12/26/[address] River. Patient reports she is doing well. She states she has numbness at the DIP of her right middle finger. She denies other hand numbness or tingling. She has discontinued her pain medications at this time. Patient is scheduled to return to work on 01/23/25. Sutures Removed & Steri Strips applied. Allergies Penicillins Allergy (Unknown, Verified 01/11/25 11:23) Unknown HPI HPI PO-Right Carpal Tunnel Release 12/26/24: Details: Anne-Marie is a 49 year old left hand dominant female who presents today for her first post operative visit s/p Right Carpal Tunnel Release, DOS: 12/26/[address] River. Patient reports she is doing well. She states she has numbness at the DIP of her right middle finge, but that overall her sensation has improved very significantly since prior to surgery.. She denies other hand numbness or tingling. She has discontinued her pain medications at this time. Patient is scheduled to return to work on 01/23/25. Sutures Removed & Steri Strips applied. 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 Neuro: Diminished sensation of the tip of the right middle finger Normal sensation of the tips of all other digits of the right hand in the office today Vascular: Cap refill brisk Pain: No tenderness to palpation about incision site on volar right wrist Minimal discomfort with range of motion of the right hand ROM: With encouragement, patient is able to make a closed fist and extend all digits of the right hand fully Skin: Well approximated and well healing incision site noted on volar right wrist No lacerations or abrasions. General: No ecchymosis, erythema, or evidence of infection. Psych: Appears grossly normal Affect normal Attitude cooperative Assessment & Plan Assessment & Plan (1) Carpal tunnel syndrome, bilateral upper limbs: Code(s): G56.03 - Carpal tunnel syndrome, bilateral upper limbs Category: Medical Plan 1. Status post right carpal tunnel release DOS 12/26/2024 Patient appears to be recovering well postoperatively Patient is educated about the typical recovery course No under water times one-week, 2 lb weight limit x2 weeks Patient appears to be recovering very well, and requires no further acute follow-up with us postoperatively Patient is educated and worrisome signs and symptoms, and should call us if they experience any of these, including but not limited to redness, swelling, increased pain, and discharge Patient understands this and is amenable to this plan 2. Left carpal tunnel syndrome Symptoms intermittent, not daily, worse at night Patient would like to hold off on any surgical intervention for now, as symptoms are not bothering her and she would like to give her right side of the chance to recover fully prior to signing up for any surgical intervention of the left side Patient is provided with my contact information in order to contact me when she is ready to discuss left-sided carpal tunnel release Patient is educated on the potential risks of prolonging treatment for carpal tunnel syndrome Patient understands these risks and is amenable to this plan Patient will follow-up as needed with any acute concerns or when ready to discuss left carpal tunnel release Coding Level of Care Code Global (22366) Diagnoses Carpal tunnel syndrome, bilateral upper limbs G56.03
--- OUTSIDE RECORDS SUMMARY | 2025-01-11 13:35 | XMS_ITS | Clinical Summary ---
Author Organization [facility] Prior to 07/09/24 Address [address] [place] [address] Care Team Providers Care Sql Data Architect Name Role Phone Loly Wing MD Primary [...] age to complete this topic Care Teams Sql Data Architect Relationship Specialty Start Date End Date Loly Wing MD [address] [place] [address] PCP - General Internal Medicine 12/10/22
--- OUTSIDE RECORDS SUMMARY | 2025-01-11 13:35 | XMS_ITS | Encounter Summary ---
Author Organization [facility] Address [address] [place] [address] Care Team Providers Care Senior Care Manager Name Role Phone Loly Browne MD Primary Care Prov ider Encounter Details Date Type Department Care Team (Latest Contact Info) Description 12/15/2024 Lab Requisition [facility] - Main Lab [address] [facility] [phone] Rylie Peter MD [address] [facility] [address] [place] [phone] Encounter for screening for infections with a predominantly sexual mode of transmission Social History Tobacco Use Types Packs/Day Years [...] your loved ones. For example, early childhood worker or elderly care for an older [...] Info) Description 01/18/2025 1:30 PM EST Appointment [facility] [address] [place] [address] [address] [place] [address] 02/08/2025 11:00 AM EST Appointment Radiology Department [address] [phone] 04/05/2025 9:30 AM EST Office Visit Adult Medicine [facility] [address] [place], [place] [phone] Loly Browne MD [address] [place], [place] 04/26/2025 11:30 AM EDT Office Visit [facility] Hematology Oncology [address] [place] [phone] Mounika Elise, [address] [place] [address] documented as of this encounter Procedures Procedure Name Priority Date/Time Associated Diagnosis Comments CHLAMYDIA TRACHOMATIS AND NEISSERIA GONORRHOEAE PCR Routine 12/15/2024 12:00 AM EST Encounter for screening for infections with a predominantly sexual mode of transmission documented in this encounter Results * Chlamydia trachomatis and Neisseria gonorrhoeae molecular study (12/15/2024 12:00 AM EST) Neisseria gonorrhoeae PCR Negative Negative LAB MOLECULAR DIAGNOSTICS METHOD 12/16/2024 8:58 AM EST [facility] Chlamydia trachomatis PCR Negative Negative LAB MOLECULAR DIAGNOSTICS METHOD 12/16/2024 8:58 AM EST [facility] Swab Cervix uteri structure / Unknown 12/15/2024 12/15/2024 6:35 PM EST us Rylie Peter MD LAB MICROBIOLOGY - GENER AL ORDERABLES Final Result [facility] [address] [place] [address], [place] [phone] documented in this encounter Visit Diagnoses Diagnosis Encounter for screening for infections with a predominantly sexual mode of transmission documented in this encounter Additional Health Concerns Assessment Noted Time PHQ-9 Depression Total Score: 15 10/13/2 025 10:32 AM EDT documented as of this encounter Care Teams Senior Care Manager Relationship Specialty Start Date End Date Loly Browne MD [address] [place] [phone] PCP - General Internal Medicine 01/06/24 documented as of this encounter
--- OUTSIDE RECORDS SUMMARY | 2025-01-11 13:35 | XMS_ITS | Encounter Summary ---
Author Organization [facility] Address [address] [place] [address] Care Team Providers Care Operations Clerk Name Role Phone Loly Browne MD Primary Care Prov ider Encounter Details Date Type Department Care Team (Late st Contact Info) Description 11/29/2024 Results Follow-Up Adult [address] [phone] Loly Browne MD [address] [place], [place] Social History Tobacco Use Types Packs/Day [...] care for your loved ones. For example, director of child welfare services or elderly care for an older adult? [...] Info) Description 01/18/2025 1:30 PM EST Appointment [facility] [address] [place] [address] [address] [place] [phone] 02/08/2025 11:00 AM EST Appointment Radiology Department [address] [phone] 04/05/2025 9:30 AM EST Office Visit Adult Medicine [facility] [address] [place], [place] [phone] Loly Browne MD [address] [place] [address] 04/26/2025 11:30 AM EDT Office Visit [facility] Hematology Oncology [address] [place] [address] Mounika Elise, [address] [place] [address] documented as of this encounter Visit Diagnoses Not on filedocumented in this encounter Additional Health Concerns Assessment Noted Time PHQ-9 Depression Total Score: 15 11/21/ 025 10:32 AM EDT documented as of this encounter Care Teams Operations Clerk Relationship Specialty Start Date End Date Loly Browne MD [address] [place] [address] PCP - General Internal Medicine 01/06/24 documented as of this encounter
--- OUTSIDE RECORDS SUMMARY | 2025-01-11 13:35 | XMS_ITS | Clinical Summary ---
Author Organization [facility] Address [address] [place] [address] Phone Care Team Providers Care Air Pollution Analyst Name Role Phone Loly Browne MD Primary [...] comorbidity and body mass index (BMI) of 38.0 to 38.9 in adult Inject 0.5 mL (2.5 mg total) under the skin every 7 (seven) days. 2 mL 5 Active tirzepatide, weight loss, (Zepbound) 2.5 mg/0.5 mL injectionIndicat ions:Class 2 severe obesity due to excess calories with serious comorbidity and body mass index (BMI) of 39.0 to 39.9 in adult Inject 0.5 mL (2.5 mg total) under the skin every 7 (seven) days. 2 mL 5 12/29/19 25 Discontinu ed(Reorder ) Active Problems Problem Noted Date Diagnosed Date Paresthesia of upper extremity 06/28/2024 Fibromyalgia 06/28/2024 Pain in both hands 06/28/2024 Right arm pain 06/28/2024 Left arm pain 06/28/2024 Pain in both forearms 06/28/2024 Cervical radiculopathy 06/28/2024 Muscle weakness 06/28/2024 S/P bariatric surgery 01/27/2024 S/P cholecystectomy 01/27/2024 Chronic diarrhea 01/27/2024 Tubular adenoma of colon 06/19/2023 Vitamin D deficiency 08/18/2016 B12 deficiency 09/13/2015 Assessment & Plan (11/28/2024 1:00 PM EDT): On B12 infusions every month with hematology. Will recheck B12 levels today. Orders: Vitamin B12; Future Assessment & Plan (07/27/2024 10:10 AM EDT): Anxiety 08/07/2015 Overview (04/15/2023): F/u at [facility] Atrial fibrillation ([facility] V24, [facility] V28) 0 08/07/2015 Assessment & Plan (11/28/2024 [...] Encounters Date Type Department Care Team Description 12/28/2024 9:30 AM EST Office Visit Adult Medicine [address] [phone] Karena Bolton PA Moderate recurrent major depression (CMS/HCC V24, CMS/HCC V28) (Primary Dx); Positive depression screening; Class 2 severe obesity due to excess calories with serious comorbidity and body mass index (BMI) of 38.0 to 38.9 in adult; Encounter for screening mammogram for malignant neoplasm of breast 12/21/2024 2:21 PM EST - 12/21/2024 11:59 PM EST Hospital Encounter [facility] Infusion Center [address] [phone] Mounika Elise DO B12 deficiency (Primary Dx) Discharge Disposition: Home or Self Care 12/16/[address] [facility] [address] [facility] [place] [address] Rylie Peter MD Encounter for gynecological examination (general) (routine) without abnormal findings 12/15/[address] [facility] [address] [place] [phone] Rylie Peter MD Encounter for screening for infections with a predominantly sexual mode of transmission 11/29/2024 Results Follow-Up Adult Medicine [address] [phone] Loly Haynes MD 11/28/2024 2:00 PM EDT Office Visit [facility] Hematology Oncology [address] [place] [phone] Mounika Elise DO Iron deficiency anemia, unspecified iron deficiency anemia type (Primary Dx); B12 deficiency 11/28/2024 12:30 PM EDT Office Visit Adult Medicine [address] [phone] Loly Haynes MD Atrial fibrillation, unspecified type (CMS/HCC V24, CMS/HCC V28) (Primary Dx); Hypothyroidism, unspecified type; B12 deficiency; Class 2 severe obesity due to excess calories with serious comorbidity and body mass index (BMI) of 39.0 to 39.9 in adult; Need for prophylactic vaccination and inoculation against influenza; Screening for depression 11/23/2024 1:59 PM EDT - 11/23/2024 11:59 PM EDT Hospital Encounter [facility] Infusion Center [address] [place] [phone] Mounika Elise DO B12 deficiency (Primary Dx) Discharge Disposition: Home or Self Care 10/26/2024 2:52 PM EDT - 10/26/2024 11:59 PM EDT Hospital Encounter [facility] Infusion Center [address] [place] [phone] Mounika Elise DO B12 deficiency (Primary Dx) Discharge Disposition: Home or Self Care 10/19/2024 Telephone Adult Medicine [address] [phone] Kaye Orellana MA from Last 3 Months Immunizations Immunization Administration Dates Next Due Hepatitis B (Fcdvypn-M-Rucft , Recombivax HB-Adult) 19yo and older 01/28/2023,08/27/2022,07/30/2022 Influenza Nasal, Unspecified Formulation 024 Influenza Quadravalent, MDCK , 0.5ml, preservative free (Flucelvax) 6mo and older 10/14/2022,01/15/2021,02/11/2019 Influenza Quadravalent, MDCK , 0.5ml, with preservative (Flucelvax) 6mo and older 12/01/2016 Influenza trivalent, 0.5mL, preservative free (Fluarix; FluLaval; Fluzone) ages 6mo and older (Afluria) 3 years and older 01/11/2022,10/05/2019,12/25/2015 Influenza trivalent, MDCK, 0 .5mL, preservative free (Flucelvax) 6mo and older 11/28/2024 Pfizer SARS-CoV-2 COVID-19, mRNA, LNP-S, preservative free 02/07/2021,07/26/2020,07/05/2020 Tdap Tetanus diptheria acell ular pertussis (Boostrix; Adacel) 7yo and older 04/16/2016,09/28/2009 Surgical History Surgery Date Site/Laterality Comments OTHER [...] anemia DX:Iron d eficiency anemia Atrial fibrillation ([facility] V24, [facility] V28) DX:Atrial fibrillation (HCC) B12 deficiency DX:B12 deficienc y Anxiety DX:Anxiety Hypothyroidism DX:Hypothyroidis m Hypothyroidism 08/07/2015 DX:Hypothyroidis m Atrial fibrillation ([facility] V24, [facility] V28) 08/07/2015 DX:Atrial fibrillation (HCC) Morbid obesity ([facility] V24, [facility] V28) 08/07/2015 DX:Morbid obesity (HCC) Iron deficiency anemia 08/07/2015 DX:Iron d eficiency anemia Anxiety 08/07/2015 DX:Anxiety; COMM ENT: F/u at [facility] B12 deficiency 09/13/2015 DX:B12 deficienc y Osteoarthritis [...] Sign Reading Time Taken Comments Blood Pressure 110/79 12/28/2024 9:32 AM EST Pulse 69 12/28/2024 9:32 AM EST Temperature 36.6 C (97.8 F) 12/28/2024 9:32 AM EST Respiratory Rate 12 12/28/2024 9:32 AM EST Oxygen Saturation 98% 12/28/2024 9:32 AM EST Inhaled Oxygen Concentration - - Weight 94.3 kg (207 lb 12.8 oz) 12/28/2024 9:32 AM EST Height 157.5 cm (5' 2 ) 12/28/2024 9:32 AM EST Body Mass Index 38.01 12/28/2024 9:32 AM EST Plan of Treatment Upcoming Encounters Date Type Department Care Team (Late st Contact Info) Description 01/18/2025 1:30 PM EST Appointment [address] [place] [address] 02/08/2025 11:00 AM EST Appointment Radiology Department - [address] [phone] 04/05/2025 9:30 AM EST Office Visit Adult Medicine East [address] [phone] Loly Browne MD [address] [place] [address] 04/26/2025 11:30 AM EDT Office Visit [facility] Hematology Oncology [address] [place] [phone] Mounika Elise, [address] [place] [address] Health Maintenance Due Date Last Done Comments Breast Cancer Screening 04/16/2025 04/17/2023 Social Influencers of Health Screening 12/28/2025 12/28/2024 DTaP,Tdap,and Td Vaccines (3 - Td or Tdap) 04/16/2026 04/16/2016, 09/28/2009 Colorectal Cancer Screening: Colonoscopy 06/18/2028 06/19/2023 Cholesterol Screening (Lipid Panel) 05/23/2029 05/23/2024 Cervical Cancer Screening: HPV 12/15/2029 12/15/2024 RSV Immunization Adult Patients (1 - 1-dose 75+ series) 11/13/2050 COVID-19 Vaccine Discontinued 02/07/2021, , 07/05/2020 Hepatitis B Vaccines Completed 01/28/2023, 08/27/2022, 07/30/2022 HIV Screening Completed 07/15/2023 Hepatitis C Screening Completed 07/15/2023 Influenza Vaccine Completed 11/28/2024, , 01/11/2022, Additional history exists Depression Screening Completed 12/28/2024 HIB Vaccines Aged Out No longer eligi [...] Procedure Name Priority Date/Time Associated Diagnosis Comments PAP SMEAR Routine 12/15/2024 12:00 AM EST Encounter for gynecological examination (general) (routine) without abnormal findings HPV WITH REFLEX GENOTYPE Routine 12/15/2024 12:00 AM EST Encounter for gynecological examination (general) (routine) without abnormal findings CHLAMYDIA TRACHOMATIS AND NEISSERIA GONORRHOEAE PCR Routine 12/15/2024 12:00 AM EST Encounter for screening for infections with a predominantly sexual mode of transmission FERRITIN Add-On 11/28/2024 2:56 PM EDT CBC [...] Routine 11/28/2024 1:07 PM EDT B12 deficiency LIPID PANEL WITH REFLEX TO DIRECT LDL Routine 05/23/2024 8:42 AM EDT Hypothyroidism, unspecified type Atrial fibrillation, unspecified type (CMS/[facility] V24, CMS/[facility] V28) from Last 3 Months or Most Recently Relevant to Health Maintenance Results * HPV with reflex genotype (12/15/2024 12:00 AM EST) Pathologist [facility] HPV Negative Negative LAB MICROBIOLOGY METHOD 12/16/2024 1:44 PM EST [facility] Brushing/Spatula Cervix uteri structure / Unknown 12/15/2024 12/16/2024 6:40 AM EST us Rylie Peter MD LAB MOLECULAR DIAGNOSTIC S ORDERABLES Final Result Performing Organization Address City/[facility]/ZIP Co de Phone Number [facility] [address] [place] [address], [place] [phone] * Chlamydia trachomatis and Neisseria gonorrhoeae molecular study (12/15/2024 12:00 AM EST) [facility] Neisseria gonorrhoeae PCR Negative Negative LAB MOLECULAR DIAGNOSTICS METHOD 12/16/2024 8:58 AM EST [facility] Chlamydia trachomatis PCR Negative Negative LAB MOLECULAR DIAGNOSTICS METHOD 12/16/2024 8:58 AM EST [facility] Swab Cervix uteri structure / Unknown 12/15/2024 12/15/2024 6:35 PM EST us Rylie Peter MD LAB MICROBIOLOGY - GENER AL ORDERABLES Final Result [facility] [address] [place] [address], [place] [phone] * Pap smear (12/15/2024 12:00 AM EST) Pathologist [facility] Interpretation Negative for intraepithelial lesion or malignancy 12/19/2024 3:12 PM EST [facility] at 1512 EST General Categorization Negative 12/19/2024 3:12 PM [facility] Specimen Adequacy Satisfactory for evaluation, endocervical/sandoval sformation zone component absent 12/19/2024 3:12 PM [facility] Pap Methodology Liquid Based Pap Test 12/19/2024 3:12 PM [facility] Disclaimer The Pap test is a screening test which carries an inherent false negative rate. These test results should be correlated with the patient's clinical findings and history. This Pap test was processed using an automated screening system. Technical cytopathology services provided by [facility], at [address] [place] [id number] (CLIA # [id number]/Hiren Jameson MD, Nuclear Cardiology Technologist.) 12/19/2024 3:12 PM [facility] Console Pap Interpretation Reported 12/19/2024 3:12 PM [facility] Brushing/Spatula Cervix uteri structure / Unknown 12/15/2024 12/16/2024 6:40 AM EST us Rylie Peter MD LAB CYTOLOGY ORDERABLES Final Result [facility] [address] [place] [address], * (ABNORMAL) CBC auto differential (11/28/2024 2:56 PM EDT) WBC 4.8 4.8 - 10.8 K/mcL LAB HEMETOLOGY METHOD 11/28/2024 4:56 PM EDT [facility] RBC 4.50 3.80 - 4.80 M/mcL LAB HEMETOLOGY METHOD 11/28/2024 4:56 PM EDT [facility] Hemoglobin 11.4(L) 11.5 - 16.0 g/dL LAB HEMETOLOGY METHOD 11/28/2024 4:56 PM EDT [facility] Hematocrit 37.4 35.0 - 47.0 % LAB HEMETOLOGY METHOD 11/28/2024 4:56 PM EDT [facility] MCV 83.9 79.0 - 98.0 FL LAB HEMETOLOGY METHOD 11/28/2024 4:56 PM EDT [facility] MCH 25.6(L) 27.0 - 32.0 pcg LAB HEMETOLOGY METHOD 11/28/2024 4:56 PM EDT [facility] MCHC 30.5(L) 32.0 - 37.0 g/dL LAB HEMETOLOGY METHOD 11/28/2024 4:56 PM EDT [facility] RDW 13.5 11.0 - 15.0 % LAB HEMETOLOGY METHOD 11/28/2024 4:56 PM EDT [facility] Platelets 233 130 - 400 K/mcL LAB HEMETOLOGY METHOD 11/28/2024 4:56 PM EDT [facility] MPV 9.6 7.0 - 11.0 FL LAB HEMETOLOGY METHOD 11/28/2024 4:56 PM EDT [facility] NRBC 0.0 <1.0 % LAB HEMETOLOGY METHOD 11/28/2024 4:56 PM EDT [facility] NRBC Absolute 0.00 <0.10 K/mcL LAB HEMETOLOGY METHOD 11/28/2024 4:56 PM EDT [facility] Neutrophils Relative 52.7 % LAB HEMETOLOGY METHOD 11/28/2024 4:56 PM EDT [facility] Lymphocytes Relative 27.2 % LAB HEMETOLOGY METHOD 11/28/2024 4:56 PM EDT [facility] Monocytes Relative 15.6 % LAB HEMETOLOGY METHOD 11/28/2024 4:56 PM EDT [facility] Eosinophils Relative 2.9 % LAB HEMETOLOGY METHOD 11/28/2024 4:56 PM EDT [facility] Basophils Relative 1.2 % LAB HEMETOLOGY METHOD 11/28/2024 4:56 PM EDT [facility] Immature Granulocytes Relative 0.4 % LAB HEMETOLOGY METHOD 11/28/2024 4:56 PM EDT [facility] Neutrophils Absolute 2.54 1.50 - 7.00 K/mcL LAB HEMETOLOGY METHOD 11/28/2024 4:56 PM EDT [facility] Lymphocytes Absolute 1.31 1.00 - 5.00 K/mcL LAB HEMETOLOGY METHOD 11/28/2024 4:56 PM EDT [facility] Monocytes Absolute 0.75 0.20 - 1.00 K/mcL LAB HEMETOLOGY METHOD 11/28/2024 4:56 PM EDT [facility] Eosinophils Absolute 0.14 0.00 - 0.50 K/mcL LAB HEMETOLOGY METHOD 11/28/2024 4:56 PM EDT [facility] Basophils Absolute 0.06 0.00 - 0.20 K/mcL LAB HEMETOLOGY METHOD 11/28/2024 4:56 PM EDT [facility] Immature Granulocytes Absolute 0.02 0.00 - 0.03 K/mcL LAB HEMETOLOGY METHOD 11/28/2024 4:56 PM EDT [facility] Blood Venous blood specimen / Unknown Venipuncture / Unknown 11/28/2024 2:56 PM EDT 11/28/2024 4:46 PM EDT us Mounika Elise DO LAB BLOOD ORDERABLES Final Result [facility] [address] [place] [address], * Iron and TIBC (11/28/2024 2:56 PM EDT) Pathologist [facility] Iron 43 40 - 150 mcg/dL LAB CHEMISTRY METHOD 11/28/2024 8:11 PM EDT [facility] TIBC 276 250 - 450 mcg/dL LAB CHEMISTRY METHOD 11/28/2024 8:11 PM EDT [facility] Iron Saturation 16 15 - 50 % LAB CHEMISTRY METHOD 11/28/2024 8:11 PM EDT [facility] Blood Venous blood specimen / Unknown Venipuncture / Unknown 11/28/2024 2:56 PM EDT 11/28/2024 4:46 PM EDT Mounika Elise DO LAB BLOOD ORDERABLES Final Result Performing Organization Address [facility]/ZIP Co de Phone Number [facility] [address] [place] [address], [place] [phone] * Ferritin (11/28/2024 2:56 PM EDT) [facility] Ferritin 35 8 - 252 ng/mL LAB CHEMISTRY METHOD 11/29/2024 8:59 AM EDT [facility] Blood Venous blood specimen / Unknown Venipuncture / Unknown 11/28/2024 2:56 PM EDT 11/28/2024 4:46 PM EDT Mounika Elise DO LAB BLOOD ORDERABLES Final Result [facility] [address] [place] [address], [place] [phone] * Vitamin B12 (11/28/2024 1:07 PM EDT) [facility] Vitamin B-12 532 250 - 900 pcg/mL LAB CHEMISTRY METHOD 11/28/2024 5:38 PM EDT [facility] Blood Venous blood specimen / Unknown Venipuncture / Unknown 11/28/2024 1:07 PM EDT 11/28/2024 1:07 PM EDT Loly Browne MD LAB BLOOD ORDERABL ES Final Result [facility] [address] [place] [address], [place] [phone] * Lipid panel with reflex to direct LDL (05/23/2024 8:42 AM EDT) [facility] Signature Cholesterol 147 0 - 200 mg/dL LAB CHEMISTRY METHOD 05/23/2024 9:35 AM EDT [facility] Triglycerides 96 0 - 150 mg/dL LAB CHEMISTRY METHOD 05/23/2024 9:35 AM EDT [facility] HDL 64 >=40 mg/dL LAB CHEMISTRY METHOD 05/23/2024 9:35 AM EDT [facility] LDL Calculated 64 0 - 100 mg/dL LAB CHEMISTRY METHOD 05/23/2024 9:35 AM EDT [facility] VLDL Cholesterol Major 19.2 mg/dL LAB CHEMISTRY METHOD 05/23/2024 9:35 AM EDT [facility] Non HDL Chol. (LDL+VLDL) 83 <145 mg/dL LAB CHEMISTRY METHOD 05/23/2024 9:35 AM EDT [facility] Chol/HDL Ratio 2.3 0.0 - 4.4 LAB CHEMISTRY METHOD 05/23/2024 9:35 AM EDT [facility] Blood Venous blood specimen / Unknown Venipuncture / Unknown 05/23/2024 8:42 AM EDT 05/23/2024 8:57 AM EDT us Maritza BANG LAB BLOOD ORDERABLES Final Resul t Performing Organization Address City/[facility]/ZIP Co de Phone Number [facility] [address] [place] [address], [place] [phone] from Last 3 Months or Most Recently Relevant to Health Maintenance Insurance [facility] [employer] Care Teams Air Pollution Analyst Relationship Specialty Start Date End Date Loly Browne MD [address] [place] [phone] PCP - General Internal Medicine 01/06/24
--- OUTSIDE RECORDS SUMMARY | 2025-01-11 13:35 | XMS_ITS | Encounter Summary ---
Author Organization [facility] Address [address] [place] [address] Care Team Providers Care Tooling Engineering Tech Name Role Phone Loly Browne MD Primary Care Prov ider Encounter Details Date Type Department Care Team (Latest Contact Info) Description 12/16/2024 Lab Requisition [facility] - Main Lab [address] [facility] [place] [phone] Rylie Peter MD [address] [facility] [address] [place] [phone] Encounter for gynecological examination (general) (routine) without abnormal findings Social History Tobacco Use Types Packs/Day Years [...] for your loved ones. For example, child care center assistant director or elderly care for an older [...] Description 01/18/2025 1:[address] [facility] [address] [place] [address] [address] [place] [address] 02/08/2025 11:00 AM EST Appointment Radiology Department [address] [phone] 04/05/2025 9:30 AM EST Office Visit Adult [facility] [address] [place], [place] [phone] Loly Browne MD [address] [place], [place] 04/26/2025 11:30 AM EDT Office Visit [facility] Hematology Oncology [address] [place] [phone] Mounika Elise, [address] [place] [address] documented as of this encounter Procedures Procedure Name Priority Date/Time Associated Diagnosis Comments HPV WITH REFLEX GENOTYPE Routine 12/15/2024 12:00 AM EST Encounter for gynecological examination (general) (routine) without abnormal findings PAP SMEAR Routine 12/15/2024 12:00 AM EST Encounter for gynecological examination (general) (routine) without abnormal findings documented in this encounter Results * HPV with reflex genotype (12/15/2024 12:00 AM EST) Pathologist [facility] HPV Negative Negative LAB MICROBIOLOGY METHOD 12/16/2024 1:44 PM EST [facility] Brushing/Spatula Cervix uteri structure / Unknown 12/15/2024 12/16/2024 6:40 AM EST us Rylie Peter MD LAB MOLECULAR DIAGNOSTIC S ORDERABLES Final Result [facility] [address] [place] [address], * Pap smear (12/15/2024 12:00 AM EST) Pathologist [facility] Interpretation Negative for intraepithelial lesion or malignancy 12/19/2024 3:12 PM [facility] at 1512 EST General Categorization Negative 12/19/2024 3:12 PM [facility] Specimen Adequacy Satisfactory for evaluation, endocervical/sandoval sformation zone component absent 12/19/2024 3:12 PM [facility] Pap Methodology Liquid Based Pap Test 12/19/2024 3:12 PM [facility] Disclaimer The Pap test is a screening test which carries an inherent false negative rate. These test results should be correlated with the patient's clinical findings and history. This Pap test was processed using an automated screening system. Technical cytopathology services provided by [facility], at [address] [place] [address] (CLIA # [id number]/Hiren Jameson MD, Public Health Teacher.) 12/19/2024 3:12 PM [facility] Console Pap Interpretation Reported 12/19/2024 3:12 PM [facility] Brushing/Spatula Cervix uteri structure / Unknown 12/15/2024 12/16/2024 6:40 AM EST us Rylie Peter MD LAB CYTOLOGY ORDERABLES Final Result Performing Organization Address City/State/[facility] Co de Phone Number [facility] [address] [place] [address], documented in this encounter Visit Diagnoses Diagnosis Encounter for gynecological examination (general) (routine) without abnormal findings documented in this encounter Additional Health Concerns Assessment Noted Time PHQ-9 Depression Total Score: 15 025 10:32 AM EDT documented as of this encounter Care Teams Tooling Engineering Tech Relationship Specialty Start Date End Date Loly Browne MD [address] [place], [place] PCP - General Internal Medicine 01/06/24 documented as of this encounter
== END 2025-01-11 12:21 | disposition home or self-care (01) ==
LOC: HO.HOS 11:19
PROVIDERS: PCP Internal Medicine
DX: G56.03 Carpal tunnel syndrome, bilateral upper limbs (principal)
CPT/HCPCS: 99024

== ENCOUNTER → 2025-01-11 11:18 | Outpatient (BNVA) | payer OTHER, SELFPAY | PROVIDERS: PCP Internal Medicine | DX: Z47.89 Encounter for other orthopedic aftercare (principal); G56.03 Carpal tunnel syndrome, bilateral upper limbs | CPT/HCPCS: 99212 ==